=== PATIENT | female | born 1970 | race Caucasian/White ===

== ENCOUNTER → 2017-08-25 16:41 | Outpatient (CLI) | payer MEDICARE, SELFPAY ==
[2017-08-27 06:08] LABS: HEPATITIS B SURFACE AG Negative (Negative); Hepatitis A AB, Total Negative (Negative); Hepatitis A IgM Antibody Negative (Negative); Hepatitis B Core AB IgM Negative (Negative); Hepatitis B Core Ab Total Negative (Negative); Hepatitis C Ab <0.1 s/co ratio (0.0-0.9)
[2017-08-27 11:19] LABS: Hep B Surface Antibodies Non Reactive (.)
== END ==
PROVIDERS: Family Provider Family Medicine; PCP Family Medicine; Visit Provider Psychiatry & Neurology Neurology
DX: G35 Multiple sclerosis (principal)
CPT/HCPCS: 36415; 86704; 86705; 86706; 86708; 86709; 86803; 87340

== ENCOUNTER → 2017-09-24 07:37 | Outpatient (CLI) | payer MEDICARE, SELFPAY ==
[2017-09-24] VITALS (7 sets, daily range): BP systolic 96–109; BP diastolic 63–71; PULSE 64–94; RESP 16–18; TEMP 36.1–37.6; O2SAT 95–99; BMI 21.2
[2017-09-24] MEDS: MethylPREDNISolone 125 MG/2 ML Vial 100 MG IV (08:16)
[2017-09-24] MEDS: DiphenhydrAMINE 50 MG/ML Syringe 25 MG IV (08:17)
== END ==
PROVIDERS: Family Provider Family Medicine; PCP Family Medicine; Visit Provider Psychiatry & Neurology Neurology
DX: G35 Multiple sclerosis (principal)
CPT/HCPCS: 96365; 96366 ×2; 96374; 96375; J7050; A4216; J2350

== ENCOUNTER → 2017-10-15 07:45 | Outpatient (CLI) | payer MEDICARE, SELFPAY ==
[2017-10-15 08:10] VITALS: BP 104/87; PULSE 108; RESP 16; TEMP 36.3; O2SAT 95; BMI 19.5
[2017-10-15] MEDS: MethylPREDNISolone 125 MG/2 ML Vial 100 MG IV (08:31)
[2017-10-15] MEDS: DiphenhydrAMINE 50 MG/ML Syringe 25 MG IV (08:31)
[2017-10-15 10:40] VITALS: BP 110/77; PULSE 98; RESP 16
[2017-10-15 11:08] VITALS: BP 104/69; PULSE 98; RESP 16
[2017-10-15 11:35] VITALS: BP 110/70; PULSE 95; RESP 16; TEMP 36.7
[2017-10-15 12:08] VITALS: BP 109/72; PULSE 74; RESP 16; O2SAT 98
[2017-10-15 12:37] VITALS: BP 103/66; PULSE 95; RESP 16; TEMP 36.7; O2SAT 98
== END ==
PROVIDERS: Family Provider Family Medicine; PCP Family Medicine; Visit Provider Psychiatry & Neurology Neurology
DX: G35 Multiple sclerosis (principal)
CPT/HCPCS: 96365; 96366 ×3; 96374; 96375; J7050; A4216; J2350

== ENCOUNTER → 2018-03-25 07:47 | Outpatient (CLI) | payer MEDICARE, SELFPAY ==
[2018-03-25 08:12] VITALS: BP 128/69; PULSE 75; RESP 16; TEMP 36.4; O2SAT 98; BMI 20.2
[2018-03-25] MEDS: DiphenhydrAMINE 50 MG/ML Syringe 25 MG IV (08:49)
[2018-03-25] MEDS: MethylPREDNISolone 125 MG/2 ML Vial 100 MG IV (08:51)
[2018-03-25] MEDS: Ocrelizumab 600mg Infusion 40 MG IV (09:26)
[2018-03-25 10:04] VITALS: BP 109/64; PULSE 90; RESP 14; O2SAT 95
[2018-03-25 10:32] VITALS: BP 112/66; PULSE 88; RESP 16; TEMP 36.7; O2SAT 98
[2018-03-25 11:08] VITALS: BP 116/71; PULSE 92; RESP 16; TEMP 36.7; O2SAT 95
[2018-03-25 11:44] VITALS: BP 116/65; PULSE 89; RESP 16; TEMP 36.8; O2SAT 93
[2018-03-25 13:38] VITALS: BP 122/72; PULSE 99; RESP 14; TEMP 37.1; O2SAT 99
== END ==
PROVIDERS: Family Provider Family Medicine; PCP Family Medicine; Visit Provider Psychiatry & Neurology Neurology
DX: G35 Multiple sclerosis (principal)
CPT/HCPCS: 96365; 96366 ×3; 96374; 96375; J7040; J7050; A4216; J2350

== ENCOUNTER 2018-03-27 08:10 | Inpatient (IN) | payer MEDICARE, SELFPAY ==
[2018-03-27] VITALS (14 sets, daily range): BP systolic 100–141; BP diastolic 61–84; PULSE 87–144; RESP 16–32; TEMP 36.7–39.4; O2SAT 92–96; BMI 19.5; BMI 23.4
--- NOTE | 2018-03-27 08:25 | EKG12_ITS ---
Test Reason : DYSRHYTHMIA Blood Pressure : / mmHG Vent. Rate : 137 BPM Atrial Rate : 137 BPM P-R Int : 134 ms QRS Dur : 076 ms QT Int : 280 ms P-R-T Axes : 042 -19 072 degrees QTc Int : 422 ms Sinus tachycardia with occasional Premature ventricular complexes Voltage criteria for left ventricular hypertrophy Nonspecific ST and T wave abnormality Abnormal ECG Confirmed by DUSTY MARION, PETER ([id number]), photograph editor TOVA LAU ([id number]) on 03/28/2018 2:10:44 PM Referred By: Ed Caldwell Confirmed By:PETER MONTANO MD
--- NOTE | 2018-03-27 08:25 | RAD_ITS ---
STUDY: X-RAY CHEST REASON FOR EXAM: Female, 47 years old. Fever TECHNIQUE: Single frontal view COMPARISON: September 27, 2013 FINDINGS: The lungs are not fully expanded. There is a focal right basilar infiltrate/atelectasis. Mildly prominent cardiac shadow. Normal mediastinum and venessa. Normal visualized pulmonary arteries. Normal visualized aortic arch and descending thoracic aorta. Normal visualized thoracic spine. Normal visualized ribs, clavicles, and shoulders. There is no demonstrated abnormality of the visualized soft tissue structures of the upper abdomen. RAD/Chest 1 View (Portable) IMPRESSION: Right basilar focal infiltrate/atelectasis. Electronically Signed: Larry Tejeda DO at 8:51 EDT Tel [phone], Service support ,
--- NOTE | 2018-03-27 08:31 | ED.VISSUMM ---
- ER Visit Summary Date of Service: 03/27/18 Chief Complaint: Fever and decreased mental status History of Present Illness: The patient is a 47 F history of MS and hypothyroidism. Patient is wheelchair-bound and unable to walk. She is cared for by her at home. He states she was doing well she was in her normal state of health. Wednesday morning she was fine. He went to work. When he came home he said she had decreased mental status and he believes she may have developed a fever which he realized she definitely had today. It was concerned she was getting dehydrated and brought her into the ER. He denies any vomiting or diarrhea. No known cough. No falls or head trauma. She has had an episode like this before when she had a urinary tract infection. Physical Examination: Middle-aged female. Initial blood pressure 129/84. Temperature 103. Heart rate 144. Pulse ox 93% on room air. Patient definitely looks dehydrated. She may be septic. HEENT exam atraumatic. Dry mucous membranes. Neck nontender no meningismus. No lymphadenopathy. Lungs diminished but no rales, rhonchi or wheezing. She is taking shallow respirations. Heart tachycardic rate about 140. I do not appreciate any murmur. Abdomen is soft and nontender. No peritoneal signs. Normal bowel sounds. She is extremely weak on all 4 extremities. She has a history of MS. She has a left foot drop brace on the left lower extremity. Currently she is not moving her extremities. Neurologically she is arousable. Is confused. Does not follow commands. Does not answer questions appropriately. Test Results: Chest x-ray has a possible right lower lobe infiltrate but more than likely this is atelectasis. EKG sinus tachycardia rate of 137. Seizures white count of 14. Hemoglobin of 14. No bands. Electrolytes unremarkable except for a BUN 25 and a creatinine 1.42. Liver enzymes are normal. PT/INR normal. Lactate is normal at 1.2. Emergency Department Course and Treatment: Patient will begin sepsis protocol workup. She will be treated with 2 L of normal saline. IV Toradol for her fever. Also started on IV Rocephin 2 g. Treatment Plan: Spoke to the hospitalist and the patient will be admitted to the PCU. Disposition: Admission Impression: Acute fever secondary to acute sepsis Acute urinary tract infection Acute dehydration Decreased mental status History of MS and is wheelchair bound This note was generated with [employer] dictation software. It may contain incorrect words, spelling, and punctuation that were not noted in review of the chart prior to signing ED Disposition - Plan for ED Patient: Chief Complaint: Alt LOC Referrals: Care Physician,No Primary [Primary Care Provider] -
[2018-03-27] MEDS: 0.9% Normal Saline 1,000 ML 999 ML IV ×2 (08:50→09:51)
[2018-03-27] MEDS: Ketorolac 30 MG/ML Syringe IV (08:50)
[2018-03-27 09:21] LABS: Absolute Lymphocyte Count 0.32 X10^3/ul (0.83-4.51); Basophil# 0.02 X10^3/uL; Basophil% 0.1 % (0-1); Differential Indicated SCAN CRITERIA MET; Eosinophil# 0.01 X10^3/uL; Eosinophils% 0.1 % (0-5); Hematocrit 43.1 % (37-47); Hemoglobin 14.9 g/dl (12.0-15.0); Lymphocyte # 0.32 X10^3/ul (4.0); Lymphocyte % 2.3 % (19-41); Mean Corp Hgb Conc 34.6 g/gl (32-36); Mean Corpuscular Hgb 30.2 pg (27.0-32.0); Mean Corpuscular Volume 87.2 fL (81-99); Mean Platelet Vol. 10.9 fl (6.2-12.0); Monocyte# 0.57 X10^3/uL; Monocyte% 4.1 % (0-10); Neutrophil % 93.1 % (47-70); POSITIVE COUNT NO; POSITIVE DIFFERENTIAL YES; POSITIVE MORPHOLOGY NO; Platelet Count 213 K/mm3 (150-450); RBC Distribution Width CV 14.7 % (11.6-14.6); RBC Distribution Width SD 47.1 fl (35.1-43.9); Red Blood Count 4.94 M/mm3 (4.2-5.4)
[2018-03-27 09:24] LABS: International Normalized Ratio 1.1; Prothrombin Time (Protime)PT. 14.4 SECONDS (11.7-14.9)
[2018-03-27 09:25] LABS: Partial Thromboplast Time 34.3 Seconds (24.1-36.2)
[2018-03-27 09:28] LABS: Lactic Acid 1.2 mmol/L (0.4-2.0)
[2018-03-27 09:28] LABS: ALB/GLOB Ratio 0.7 RATIO (0.9-2.4); AST(SGOT) 41 U/L (15-37); Alanine Aminotransfer ALT/SGPT 52 U/L (13-56); Albumin, Serum 3.2 g/dL (3.2-5.0); Alkaline Phosphatase 104 U/L (45-117); Anion Gap 13 (5-15); BUN 25 mg/dL (7-18); BUN/Creat Ratio 17.6 RATIO (10-20); Calcium,Total 9.5 mg/dL (8.5-10.1); Chloride 104 mmol/L (98-107); Creatinine, Serum 1.42 mg/dL (0.55-1.02); EST Glomerular Filtration Rate 42 mL/min (>60); Est Glom Filt Rate - Afr Amer 51 mL/min (>60); Estimated Creatinine Clearance 39.12 ml/min; Globulin 4.6 g/dL (2.2-4.2); Glucose 93 mg/dL (74-106); Protein, Total 7.8 g/dL (6.4-8.2); Sodium Level 140 mmol/L (136-145)
--- NOTE | 2018-03-27 09:41 | ED.RN ---
PT HAS A SUPRAPUBIC CATH IN PLACE FROM HOME. STATES HE REPLACES THEM NEEDED AND THIS PARTICULAR CATH HAS BEEN IN PLACE X 2 WEEKS.
[2018-03-27 10:01] LABS: Mucous, Urine 0 SEEN /hpf (<or=2+)
[2018-03-27 10:09] LABS: Color, Urine Yellow (Yellow); Glucose, Dipstick Normal (Normal); Ketone-Dipstick 50 mg/dl (Negative); Leukocyte Esterase-Dipstick 500 /ul (Negative); Nitrite-Dipstick Positive (Negative); Occult Blood-Urine 250 /ul (Negative); Protein-Dipstick 100 mg/dl (Negative); Urine Bilirubin Dipstick Negative (Negative); Urine Clarity Turbid (Clear); Urine Urobilinogen Normal (Normal)
[2018-03-27 10:19] LABS: Amorphous Sediment 3+; Bacteria 3+ /hpf (None Seen); Red Blood Cells-Urine 0-5 SEEN /hpf (0-5); Squamous Epithelial Cells - UA 0-5 SEEN /hpf (5-10); Triple Phosphate Crystals Ur RARE /hpf (<or=1+); White Blood Cells 25-50 SEEN /hpf (0-5)
--- NOTE | 2018-03-27 11:04 | CT_ITS ---
STUDY: CT BRAIN WITHOUT CONTRAST REASON FOR EXAM: Female, 47 years old. Headache, lethargic, confusion, fever. RADIATION DOSAGE (If Supplied By Facility): CTDIvol = ( 44.99 ) mGy, DLP = ( 779.24 ) mGycm TECHNIQUE: Transaxial CT imaging of the brain was performed without administration of intravenous contrast material. Coronal and sagittal 2-D MPR Individualized dose optimization techniques were used for this CT. COMPARISON: MRI brain 09/27/2013, CT brain 09/27/2013. FINDINGS: Paranasal sinuses clear. Mastoid air cells and middle ear cavities clear. Cranial facial osseous structures unremarkable. The extra cranial soft tissues including orbital contents appear normal. There is no significant cerebral atrophy. There are mild and subtle patchy low-density changes in the deep white matter concordant with features seen on prior brain imaging. There is no acute intracranial bleed, mass or mass effect nor any specific evidence of acute territorial infarct. CT/Brain/Head without Contrast IMPRESSION: No acute intracranial process. Electronically Signed: Lee Woodruff, at 16:42 EDT Tel , Service support ,
--- NOTE | 2018-03-27 11:16 | HP.PCM_ITS ---
Problem List (1) Encephalopathy acute Status: Acute (2) Urinary tract bacterial infections Status: Acute (3) Multiple sclerosis Status: Chronic (4) Hypothyroidism Status: Chronic History of Present Illness Date of Admission: 03/27/18 Chief Complaint: Altered mental status since yesterday The patient is a 47 year old F with history of MS, was given IV infusion last Wednesday, medication unclear but I guess OCREVUS by Dr. Caldwell and then she was lethargic, dull and decreased responsiveness yesterday. When patient's left her for work yesterday, she was lethargic but when he came back she was almost unresponsive or very decreased responsiveness. She was confused and disoriented. He thinks he also had fever. In ED, she was found tachycardic, heart rate 144, high fever 103 Fahrenheit, tachypneic and leukocytosis suggestive of infection. She was started on IV ceftriaxone and had about 2 L IV normal saline bolus. Basic labs shows leukocytosis with left shift, BUN 25, creatinine 1.42. EKG shows sinus tachycardia. Chest x-ray shows right basilar atelectasis. [] Past Medical History Past Medical History (Chronic Problems): Chronic Problems Multiple sclerosis (Chronic) Hypothyroidism (Chronic) Allergies acetaminophen [From Percocet] Adverse Reaction (Verified 03/27/18 08:13) Other MESSES WITH MY HEAD ciprofloxacin [From Cipro] Adverse Reaction (Verified 03/27/18 08:13) Nausea/Vom/Diarrhea nitrofurantoin [From Macrodantin] Adverse Reaction (Verified 03/27/18 08:13) Nausea/Vom/Diarrhea oxycodone [From Percocet] Adverse Reaction (Verified 03/27/18 08:13) Other MESSES WITH MY HEAD Home Medications: Ambulatory Orders Medication Instructions Recorded Baclofen [Lioresal] 20 mg PO TID 08/27/13 Atorvastatin Calcium [Lipitor] 20 mg PO QHS 09/24/17 Gabapentin [Neurontin] 300 mg PO TIDCM 09/24/17 Levothyroxine Sodium [Synthroid] 88 mcg PO DAILY 03/27/18 Surgical History: cholecystectomy, tonsillectomy, - - Thyroidectomy, removal of kidney stone Psychiatric History: Anxiety 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 Last catheter changed 2 weeks ago Unable to obtain accurate/complete ROS d/t: Altered mental status. From VTE Information - Inpt Only VTE Present on Admission: No VTE Mechan Device Prophylaxis: None VTE Pharm Prophylaxis ordered?: Yes Patient Problems: Active and Suspected Problems Encephalopathy acute (Acute) - Physical Exam General: Disoriented - To time, Lethargic HEENT: Atraumatic, PERRLA, EOMI, Normocephalic Oral: Dry Mucosa Neck: Supple, No JVD, Negative Carotid Bruits, No Nuchal Rigidity, - - Meningeal signs negative Lungs: Clear to auscultation, No rhonchi, No wheeze, No rales, Diminished - Diminished in bilateral lung bases Cardiovascular: Regular Rhythm, Normal S1, Normal S2, No murmurs, Tachycardic Abdomen: Bowel Sounds Present, Soft, Non Tender, Non-Distended, - - Suprapubic catheter. Urine looks turbid Extremities: No edema, Capillary Refill Less than 3 Seconds Skin: No rashes, No breakdown Musculoskeletal: No Tenderness to Palpation of Joints or Extremities, Arthritic Changes, Muscle Wasting Neurological: Cranial nerves II-XII grossly intact, - - Paraplegia. Left leg drop with brace on it. Bilateral upper extremity mild weakness. Psych/Mental Status: Normal Affect, Appropriate Vital Signs Temp Pulse Resp BP Pulse Ox 98.2 F 112 H 19 H 111/75 94 03/27/18 09:50 03/27/18 09:57 03/27/18 09:57 03/27/18 09:57 03/27/18 09:57 Oxygen Delivery Method Room Air Weight: 114 lb Body Mass Index (BMI) 19.5 Laboratory Tests Past 24 Hrs 03/27/18 03/27/18 03/27/18 08:35 08:35 08:35 WBC 14.0 H RBC 4.94 Hgb 14.9 Hct 43.1 MCV 87.2 MCH 30.2 MCHC 34.6 RDW 14.7 H RDW Differential 47.1 H Plt Count 213 MPV 10.9 Immature Gran % (Auto) 0.300 Neut % (Auto) 93.1 H Lymph % (Auto) 2.3 L [place] % (Auto) 4.1 Eos % (Auto) 0.1 Baso % (Auto) 0.1 Absolute Neuts (auto) 13.0 H Absolute Lymphs (auto) 0.32 L Total Counted Not Reportable Differential Comment COMMENT PT 14.4 INR 1.1 APTT 34.3 Sodium 140 Potassium 4.0 Chloride 104 Carbon Dioxide 23.0 Anion Gap 13 BUN 25 H Creatinine 1.42 H Estim Creat Clear Calc 39.12 Est GFR (MDRD) Af Amer 51 L Est GFR (MDRD) Non-Af 42 L BUN/Creatinine Ratio 17.6 Glucose 93 Lactic Acid Calcium 9.5 Total Bilirubin 0.80 AST 41 H ALT 52 Alkaline Phosphatase 104 Total Protein 7.8 Albumin 3.2 Globulin 4.6 H Albumin/Globulin Ratio 0.7 L Urine Color Urine Clarity Urine pH Ur Specific [place] Urine Protein Urine Glucose (UA) Urine Ketones Urine Occult Blood Urine Nitrite Urine Bilirubin Urine Urobilinogen Ur Leukocyte Esterase Urine RBC Urine WBC Ur Squamous Epith Cells Triple Phos Crystals Amorphous Sediment Urine Bacteria Urine Mucus 03/27/18 03/27/18 09:00 09:50 WBC RBC Hgb Hct MCV MCH MCHC RDW RDW Differential Plt Count MPV Immature Gran % (Auto) Neut % (Auto) Lymph % (Auto) [place] % (Auto) Eos % (Auto) Baso % (Auto) Absolute Neuts (auto) Absolute Lymphs (auto) Total Counted Differential Comment PT INR APTT Sodium Potassium Chloride Carbon Dioxide Anion Gap BUN Creatinine Estim Creat Clear Calc Est GFR (MDRD) Af Amer Est GFR (MDRD) Non-Af BUN/Creatinine Ratio Glucose Lactic Acid 1.2 Calcium Total Bilirubin AST ALT Alkaline Phosphatase Total Protein Albumin Globulin Albumin/Globulin Ratio Urine Color Yellow Urine Clarity Turbid Urine pH 8.0 Ur Specific [place] 1.010 Urine Protein 100 H Urine Glucose (UA) Normal Urine Ketones 50 H Urine Occult Blood 250 H Urine Nitrite Positive H Urine Bilirubin Negative Urine Urobilinogen Normal Ur Leukocyte Esterase 500 H Urine RBC 0-5 SEEN Urine WBC 25-50 SEEN Ur Squamous Epith Cells 0-5 SEEN Triple Phos Crystals RARE Amorphous Sediment 3+ Urine Bacteria 3+ Urine Mucus 0 SEEN Assessment/Plan All Active Problems Encephalopathy acute (Acute) Troponin level elevated (Acute) Exacerbation of multiple sclerosis (Acute) Urinary tract bacterial infections (Acute) The patient is a 47 year old F with history of MS, was given IV infusion last Wednesday, medication unclear but I guess OCREVUS by Dr. Caldwell and then she was lethargic, dull and decreased responsiveness yesterday. When patient's left her for work yesterday, she was lethargic but when he came back she was almost unresponsive or very decreased responsiveness. She was confused and disoriented. He thinks he also had fever. She also complained of headache and neck pain. In ED, she was found tachycardic, heart rate 144, high fever 103 Fahrenheit, tachypneic and leukocytosis suggestive of infection. She was started on IV ceftriaxone and had about 2 L IV normal saline bolus. Basic labs shows leukocytosis with left shift, BUN 25, creatinine 1.42. EKG shows sinus tachycardia. Chest x-ray shows right basilar atelectasis. 1. Acute encephalopathy most probably secondary to infection/metabolic encephalopathy: Patient is currently being admitted in PCU. IV fluid normal saline. Treat the underlying cause. After IV fluid rehydration, patient is more awake and alert. 2 SIRS (tachycardic, heart rate 144, high fever 103 Fahrenheit, tachypneic and leukocytosis), possible sepsis secondary to complicated UTI: Patient needs vigorous rehydration. Blood culture and urine cultures sent in ER. Empirically started on IV ceftriaxone. Patient is allergic to Cipro. Respiratory panel ordered. ESR and CRP ordered 3. MS with recent headache: Neurology consult requested. CT head ordered. No neck rigidity or meningeal signs. I do not think she has meningitis. 4. Other chronic comorbidities include wheelchair-bound, debility and paraplegia secondary to MS, hypothyroidism: PT and OT ordered. TSH and free T4 ordered. Multiple comorbidities complicates the present care and expect difficult and delay recovery VT prophylaxis: On Lovenox 40 mg subcu daily. Code Visit Inpatient E&M: 35256 Init Hosp L3
[2018-03-27] MEDS: 0.9% Normal Saline 1,000 ML 150 ML IV (12:30)
[2018-03-27 13:02] LABS: Erythrocyte Sedimentation Rate 70 mm/hr (0-20)
[2018-03-27] MEDS: Baclofen 10 MG Tablet PO ×2 (13:37→16:43)
[2018-03-27] MEDS: Gabapentin 300 MG Capsule PO ×2 (13:37→16:43)
[2018-03-27] MEDS: Enoxaparin 40 MG/0.4 ML Syringe SC (13:38)
[2018-03-27] MEDS: Oxybutynin 5 MG Tablet PO ×2 (14:02→21:53)
[2018-03-27] MEDS: Levothyroxine 88 MCG Tablet PO (16:43)
[2018-03-27] MEDS: 0.9% Normal Saline 1,000 ML 100 ML IV (20:09)
[2018-03-27] MEDS: Acetaminophen 325 MG Tablet 650 MG PO (20:18)
[2018-03-27] MEDS: Atorvastatin Calcium 20 MG Tablet PO (21:53)
[2018-03-28] VITALS (14 sets, daily range): BP systolic 105–129; BP diastolic 73–85; PULSE 81–124; RESP 14–20; TEMP 36.2–37.1; O2SAT 95–99
[2018-03-28] MEDS: Acetaminophen 325 MG Tablet 650 MG PO ×2 (04:02→09:46)
[2018-03-28] MEDS: Oxybutynin 5 MG Tablet PO ×3 (05:21→21:00)
[2018-03-28] MEDS: Levothyroxine 88 MCG Tablet PO (05:21)
[2018-03-28 06:09] LABS: Absolute Lymphocyte Count 0.57 X10^3/ul (0.83-4.51); Absolute Neutrophil Count 9.1 X10^3/uL (2.0-7.7); Basophil# 0.01 X10^3/uL; Basophil% 0.1 % (0-1); Eosinophil# 0.01 X10^3/uL; Eosinophils% 0.1 % (0-5); Hematocrit 33.7 % (37-47); Lymphocyte # 0.57 X10^3/ul (4.0); Lymphocyte % 5.3 % (19-41); Mean Corp Hgb Conc 32.6 g/gl (32-36); Mean Corpuscular Hgb 29.1 pg (27.0-32.0); Mean Corpuscular Volume 89.2 fL (81-99); Mean Platelet Vol. 10.6 fl (6.2-12.0); Monocyte# 1.11 X10^3/uL; Monocyte% 10.3 % (0-10); Neutrophil # 9.08 X10^3/uL (2.7-7.7); Neutrophil % 84.1 % (47-70); Platelet Count 138 K/mm3 (150-450); RBC Distribution Width CV 14.9 % (11.6-14.6); RBC Distribution Width SD 48.5 fl (35.1-43.9); Red Blood Count 3.78 M/mm3 (4.2-5.4); White Blood Count 10.8 K/mm3 (4.4-11.0)
[2018-03-28 06:16] LABS: Differential Indicated SCAN CRITERIA MET; POSITIVE COUNT NO; POSITIVE DIFFERENTIAL YES; POSITIVE MORPHOLOGY YES
[2018-03-28 06:40] LABS: Anion Gap 8 (5-15); BUN 22 mg/dL (7-18); BUN/Creat Ratio 18.8 RATIO (10-20); Calcium,Total 7.9 mg/dL (8.5-10.1); Chloride 114 mmol/L (98-107); Creatinine, Serum 1.17 mg/dL (0.55-1.02); EST Glomerular Filtration Rate 52 mL/min (>60); Est Glom Filt Rate - Afr Amer 63 mL/min (>60); Estimated Creatinine Clearance 41.78 ml/min; Glucose 80 mg/dL (74-106); Potassium 3.9 mmol/L (3.5-5.1); Sodium Level 143 mmol/L (136-145); T4 Free Direct 1.14 ng/dL (0.76-1.46); Thyroid Stim Hormone (TSH) 2.18 uIU/mL (0.358-3.74)
[2018-03-28 07:20] LABS: Differential Comment SCANNED
[2018-03-28] MEDS: Gabapentin 300 MG Capsule PO ×3 (08:32→17:43)
[2018-03-28] MEDS: Baclofen 10 MG Tablet PO ×3 (08:33→17:43)
[2018-03-28 09:36] LABS: Magnesium 1.8 mg/dL (1.6-2.6)
--- NOTE | 2018-03-28 09:46 | PCM.PN.HOSP ---
Patient Problems: Active and Suspected Problems Encephalopathy acute (Acute) Subjective: Patient is a 47-year-old lady with history of multiple sclerosis who presented with increasing lethargy associated with fever. Her initial assessment was consistent with acute cystitis admitted to a monitored bed for subsequent management 03/28/2018. Patient had a runs of nonsustained VT on telemetry. Magnesium checked came back at 1.8 calcium 7.9 did receive IV magnesium as well as calcium supplementation Objective: GENERAL: cooperative and in no apparent distress. HEENT: Atraumatic; moist oral mucosa EYES; Anicteric, Normal Conjunctiva NECK; supple, normal thyroid, RESPIRATORY: Diminished to auscultation bilaterally, CARDIOVASCULAR: Regular S1 S2, GI: soft, non-tender, normoactive bowel sounds, : No Renal angle tenderness; EXTREMITIES: No edema, no clubbing, MUSCULOSKELTAL: No Joint Tenderness; NEURO: Awake; no lateralizing signs. SKIN: No Rash PSYCH; flat affect Vitals/I&O's: Vital Signs Temp Pulse Resp BP Pulse Ox 98.5 F 124 H 20 H 114/73 95 03/28/18 08:08 03/28/18 09:20 03/28/18 08:08 03/28/18 08:08 03/28/18 08:08 Oxygen Delivery Method Room Air Weight: 54.431 kg Body Mass Index (BMI) 23.4 Intake and Output for Last 24 Hours 03/26/18 03/27/18 03/28/18 23:59 23:59 23:59 Intake Total 3663 / 3663 629 / 629 Output Total 1550 / 1550 350 / 350 Balance 2113 / 2113 279 / 279 Microbiology Past 72 Hours 03/27/18 08:35 Blood Culture (Wb) - Venous Blood Culture - Preliminary 03/27/18 09:00 Blood Culture (Wb) - Right Hand Blood Culture - Preliminary Laboratory Results 03/27/18 08:35: Total Counted Not Reportable, Differential Comment COMMENT 03/27/18 08:35: C-React Prot Ext Range 402.00 H 03/27/18 08:35: ESR 70 H 03/27/18 09:50: Urine Color Yellow, Urine Clarity Turbid, Urine pH 8.0, Ur Specific [place] 1.010, Urine Protein 100 H, Urine Glucose (UA) Normal, Urine Ketones 50 H, Urine Occult Blood 250 H, Urine Nitrite Positive H, Urine Bilirubin Negative, Urine Urobilinogen Normal, Ur Leukocyte Esterase 500 H, Urine RBC 0-5 SEEN, Urine WBC 25-50 SEEN, Ur Squamous Epith Cells 0-5 SEEN, Triple Phos Crystals RARE, Amorphous Sediment 3+, Urine Bacteria 3+, Urine Mucus 0 SEEN 03/28/18 05:10: Sodium 143, Potassium 3.9, Chloride 114 H, Carbon Dioxide 21.0, Anion Gap 8, BUN 22 H, Creatinine 1.17 H, Estim Creat Clear Calc 41.78, Est GFR (MDRD) Af Amer 63, Est GFR (MDRD) Non-Af 52 L, BUN/Creatinine Ratio 18.8, Glucose 80, Calcium 7.9 L, TSH 2.18, Free T4 1.14 03/28/18 05:10: WBC 10.8, RBC 3.78 L, Hgb 11.0 L, Hct 33.7 L, MCV 89.2, MCH 29.1, MCHC 32.6, RDW 14.9 H, RDW Differential 48.5 H, Plt Count 138 L, MPV 10.6, Immature Gran % (Auto) 0.100, Neut % (Auto) 84.1 H, Lymph % (Auto) 5.3 L, [place] % (Auto) 10.3 H, Eos % (Auto) 0.1, Baso % (Auto) 0.1, Absolute Neuts (auto) 9.1 H, Absolute Lymphs (auto) 0.57 L, Total Counted Not Reportable, Differential Comment SCANNED 03/28/18 05:10: Magnesium 1.8 Current Medications Acetaminophen (Tylenol) 650 mg PO Q6H PRN PRN PRN Reason: Mild Pain (scale 0-3)/T>100.7 Last Admin: 03/28/18 04:02 Dose: 650 mg Al Hydroxide/Mg Hydroxide (Mylanta Ii) 30 ml PO Q6H PRN PRN PRN Reason: Gastric burning Atorvastatin Calcium (Lipitor) 20 mg PO QHS [facility] Last Admin: 03/27/18 21:53 Dose: 20 mg Baclofen (Lioresal) 10 mg PO TIDCM [facility] Last Admin: 03/28/18 08:33 Dose: 10 mg Calcium/Vitamin D (Os-Darren 500mg + D) 1 tablet PO TIDCM [facility] Enoxaparin Sodium (Lovenox) 40 mg SC DAILY@1000 [facility] Last Admin: 03/27/18 13:38 Dose: 40 mg Famotidine (Pepcid) 20 mg PO DAILY [facility] Gabapentin (Neurontin) 300 mg PO TIDCM [facility] Last Admin: 03/28/18 08:32 Dose: 300 mg Ceftriaxone Sodium (Rocephin) 1 gm in 50 mls @ 100 mls/hr IV Q24 [facility] Magnesium Sulfate 2 gm/ (Dextrose) 104 mls @ 52 mls/hr IV X1 ONE Stop: 03/28/18 11:40 Levothyroxine Sodium (Synthroid) 88 mcg PO DAILY@0600 [facility] Last Admin: 03/28/18 05:21 Dose: 88 mcg Magnesium Hydroxide (Milk Of Magnesia) 30 ml PO DAILY PRN PRN Reason: Constipation Metoprolol Tartrate (Lopressor (Beta Mandy)) 12.5 mg PO DAILY [facility] Ondansetron HCl (Zofran) 4 mg IV Q8H PRN PRN PRN Reason: NAUSEA Oxybutynin Chloride (Ditropan) 5 mg PO TID [facility] Last Admin: 03/28/18 05:21 Dose: 5 mg Polyethylene Glycol (Miralax) 17 gm PO DAILY [facility] Promethazine HCl (Phenergan) 12.5 mg IV Q6H PRN PRN PRN Reason: NAUSEA/VOMITING Senna/Docusate Sodium (Senokot-S, Torri-Colace) 2 tablet PO BID PRN PRN Reason: CONSTIPATION Sodium Chloride () 5 - 30 ml IV UD PRN PRN Reason: SALINE FLUSH Zolpidem Tartrate (Ambien (Generic)) 5 mg PO QHS PRN PRN PRN Reason: INSOMNIA Medical Necessity - Tobacco Use Smoking Status: Former smoker Assessment/Plan All Active Problems Encephalopathy acute (Acute) Troponin level elevated (Acute) Exacerbation of multiple sclerosis (Acute) Urinary tract bacterial infections (Acute) Patient is a 47-year-old lady with history of multiple sclerosis who presented with increasing lethargy associated with fever. Her initial assessment was consistent with acute cystitis admitted to a monitored bed for subsequent management 1. Sepsis (present on admission) secondary to acute cystitis as a result of chronic self-catheterization: Patient admitted to regular nursing floor managed with broad-spectrum antibiotic therapy with Rocephin as well as IV fluid resuscitation 2. Acute infectious encephalopathy secondary to above 3. Multiple sclerosis with chronic debilitation patient is wheelchair-bound. Patient is followed by Dr. Caldwell with neurology as outpatient 4. Hypothyroidism-patient is on levothyroxine home dose continued 5. Physical debility secondary to multiple sclerosis 6. DVT prophylaxis SC Lovenox Clinical Impression(s) from Imaging Studies Brain CT 03/27/18 11:04 IMPRESSION: No acute intracranial process. Electronically Signed: Lee Woodruff, at 16:42 EDT Tel , Service support , Active Medications Acetaminophen (Tylenol) 650 mg PO Q6H PRN PRN PRN Reason: Mild Pain (scale 0-3)/T>100.7 Last Admin: 03/28/18 09:46 Dose: 650 mg Al Hydroxide/Mg Hydroxide (Mylanta Ii) 30 ml PO Q6H PRN PRN PRN Reason: Gastric burning Atorvastatin Calcium (Lipitor) 20 mg PO QHS [facility] Last Admin: 03/27/18 21:53 Dose: 20 mg Baclofen (Lioresal) 10 mg PO TIDCM [facility] Last Admin: 03/28/18 11:09 Dose: 10 mg Calcium/Vitamin D (Os-Darren 500mg + D) 1 tablet PO TIDCM [facility] Last Admin: 03/28/18 12:21 Dose: 1 tablet Enoxaparin Sodium (Lovenox) 40 mg SC DAILY@1000 [facility] Last Admin: 03/28/18 10:36 Dose: 40 mg Famotidine (Pepcid) 20 mg PO DAILY [facility] Last Admin: 03/28/18 10:36 Dose: 20 mg Gabapentin (Neurontin) 300 mg PO TIDCM [facility] Last Admin: 03/28/18 11:10 Dose: 300 mg Ceftriaxone Sodium (Rocephin) 1 gm in 50 mls @ 100 mls/hr IV Q24 [facility] Last Admin: 03/28/18 10:23 Dose: 100 mls/hr Levothyroxine Sodium (Synthroid) 88 mcg PO DAILY@0600 [facility] Last Admin: 03/28/18 05:21 Dose: 88 mcg Magnesium Hydroxide (Milk Of Magnesia) 30 ml PO DAILY PRN PRN Reason: Constipation Metoprolol Tartrate (Lopressor (Beta Mandy)) 12.5 mg PO DAILY [facility] Last Admin: 03/28/18 10:35 Dose: 12.5 mg Ondansetron HCl (Zofran) 4 mg IV Q8H PRN PRN PRN Reason: NAUSEA Oxybutynin Chloride (Ditropan) 5 mg PO TID [facility] Last Admin: 03/28/18 05:21 Dose: 5 mg Polyethylene Glycol (Miralax) 17 gm PO DAILY [facility] Last Admin: 03/28/18 10:33 Dose: Not Given Promethazine HCl (Phenergan) 12.5 mg IV Q6H PRN PRN PRN Reason: NAUSEA/VOMITING Senna/Docusate Sodium (Senokot-S, Torri-Colace) 2 tablet PO BID PRN PRN Reason: CONSTIPATION Sodium Chloride () 5 - 30 ml IV UD PRN PRN Reason: SALINE FLUSH Last Admin: 03/28/18 10:26 Dose: 10 ml Zolpidem Tartrate (Ambien (Generic)) 5 mg PO QHS PRN PRN PRN Reason: INSOMNIA Code Visit Inpatient E&M: 33396 Subs Hosp L3
--- NOTE | 2018-03-28 10:07 | PCM.CONS.GEN ---
Problem List (1) Encephalopathy acute Status: Acute (2) Multiple sclerosis Status: Chronic Reason for Consult Date of Consultation: 03/28/18 Reason for Consultation: AMS History of Present Illness: The patient is a 47 year old F with PMH MS, hypothyroidism admitted with AMS and fever. History is obtained from patient and medical records. Per documentation patient was admitted 2 days ago on Wednesday (03/26/18) with lethargy, decreased responsiveness and fever. She was confused and disoriented on admission per documentation Was found to have UTI with UA showing Nitrites-positive, LE 500 and +3 bacteria in urine. Started on antibiotics and has been doing much better, at present is more alert and oriented to place and person. Per nurse taking care of the patient she is better than when she was admitted, had some waxing waning mental status yesterday night. Per patient she has been having MS since 1995, is wheel chair and bed bound from MS, has quadriparesis, followed by Dr. Caldwell, is on Ocrevus. 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 mRS 5 at baseline. Has suprapubic catheter in place per patient. Denies any SY, visual disturbances, speech disturbances, new onset focal motor weakness or sensory loss. CT head done on admission reported nothing acute. Past Medical History Past Medical History (Chronic Problems): Chronic Problems Multiple sclerosis (Chronic) Hypothyroidism (Chronic) Allergies acetaminophen [From Percocet] Adverse Reaction (Verified 03/27/18 08:13) Other MESSES WITH MY HEAD ciprofloxacin [From Cipro] Adverse Reaction (Verified 03/27/18 08:13) Nausea/Vom/Diarrhea nitrofurantoin [From Macrodantin] Adverse Reaction (Verified 03/27/18 08:13) Nausea/Vom/Diarrhea oxycodone [From Percocet] Adverse Reaction (Verified 03/27/18 08:13) Other MESSES WITH MY HEAD Home Medications: Ambulatory Orders Medication Instructions Recorded Baclofen [Lioresal] 20 mg PO 4X/DAY 08/27/13 Atorvastatin Calcium [Lipitor] 20 mg PO QHS 09/24/17 Gabapentin [Neurontin] 300 mg PO TIDCM 09/24/17 Levothyroxine Sodium [Synthroid] 88 mcg PO DAILY 03/27/18 Metoprolol Tartrate 12.5 mg PO DAILY 03/27/18 Oxybutynin [Ditropan] 5 mg PO TID 03/27/18 Surgical History: cholecystectomy, tonsillectomy, - - Thyroidectomy, removal of kidney stone Psychiatric History: Anxiety 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: 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 Lives: Spouse/ Significant Other Smoking Status: Former smoker Alcohol: None Drugs: None - *Family History Paternal History Items: No pertinent history Review of Systems Constitutional: Reports: - - complete ROS negative except as documented in HPI Patient Problems: Active and Suspected Problems Encephalopathy acute (Acute) - Physical Exam General: - - awake, alert AoAx 2 HEENT: Normocephalic Neck: Supple Lungs: Normal air movement Cardiovascular: Regular Rhythm Abdomen: Bowel Sounds Present Extremities: No cyanosis Neurological: - - consious, awake, AoA x2, CN-2-12 grossly intact, moves right UE, unable to move left UE, 0/5, B/L LE 1/5, denies any sensory loss, cerebellar signs could not be assessed, gait could not be assessed, Reflexes + B/L B/S/T/K/A, limited neurology examination. No NR, No Kernig's or Brudzincki's sign. Psych/Mental Status: Normal Affect Vital Signs Temp Pulse Resp BP Pulse Ox 98.5 F 124 H 20 H 114/73 95 03/28/18 08:08 03/28/18 09:20 03/28/18 08:08 03/28/18 08:08 03/28/18 08:08 Oxygen Delivery Method Room Air Weight: 54.431 kg Body Mass Index (BMI) 23.4 Intake and Output for Last 24 Hours 03/26/18 03/27/18 03/28/18 23:59 23:59 23:59 Intake Total 3663 / 3663 629 / 629 Output Total 1550 / 1550 350 / 350 Balance 2113 / 2113 279 / 279 Microbiology Past 72 Hours 03/27/18 08:35 Blood Culture - Preliminary Blood Culture (Wb) - Venous 03/27/18 09:00 Blood Culture - Preliminary Blood Culture (Wb) - Right Hand Laboratory Tests Past 24 Hrs 03/27/18 03/27/18 03/27/18 08:35 08:35 09:50 WBC RBC Hgb Hct MCV MCH MCHC RDW RDW Differential Plt Count MPV Immature Gran % (Auto) Neut % (Auto) Lymph % (Auto) Barnwell % (Auto) Eos % (Auto) Baso % (Auto) Absolute Neuts (auto) Absolute Lymphs (auto) Total Counted Differential Comment ESR 70 H Sodium Potassium Chloride Carbon Dioxide Anion Gap BUN Creatinine Estim Creat Clear Calc Est GFR (MDRD) Af Amer Est GFR (MDRD) Non-Af BUN/Creatinine Ratio Glucose Calcium Magnesium C-React Prot Ext Range 402.00 H TSH Free T4 Urine Color Yellow Urine Clarity Turbid Urine pH 8.0 Ur Specific [place] 1.010 Urine Protein 100 H Urine Glucose (UA) Normal Urine Ketones 50 H Urine Occult Blood 250 H Urine Nitrite Positive H Urine Bilirubin Negative Urine Urobilinogen Normal Ur Leukocyte Esterase 500 H Urine RBC 0-5 SEEN Urine WBC 25-50 SEEN Ur Squamous Epith Cells 0-5 SEEN Triple Phos Crystals RARE Amorphous Sediment 3+ Urine Bacteria 3+ Urine Mucus 0 SEEN 03/28/18 03/28/18 03/28/18 05:10 05:10 05:10 WBC 10.8 RBC 3.78 L Hgb 11.0 L Hct 33.7 L MCV 89.2 MCH 29.1 MCHC 32.6 RDW 14.9 H RDW Differential 48.5 H Plt Count 138 L MPV 10.6 Immature Gran % (Auto) 0.100 Neut % (Auto) 84.1 H Lymph % (Auto) 5.3 L Barnwell % (Auto) 10.3 H Eos % (Auto) 0.1 Baso % (Auto) 0.1 Absolute Neuts (auto) 9.1 H Absolute Lymphs (auto) 0.57 L Total Counted Not Reportable Differential Comment SCANNED ESR Sodium 143 Potassium 3.9 Chloride 114 H Carbon Dioxide 21.0 Anion Gap 8 BUN 22 H Creatinine 1.17 H Estim Creat Clear Calc 41.78 Est GFR (MDRD) Af Amer 63 Est GFR (MDRD) Non-Af 52 L BUN/Creatinine Ratio 18.8 Glucose 80 Calcium 7.9 L Magnesium 1.8 C-React Prot Ext Range TSH 2.18 Free T4 1.14 Urine Color Urine Clarity Urine pH Ur Specific [place] Urine Protein Urine Glucose (UA) Urine Ketones Urine Occult Blood Urine Nitrite Urine Bilirubin Urine Urobilinogen Ur Leukocyte Esterase Urine RBC Urine WBC Ur Squamous Epith Cells Triple Phos Crystals Amorphous Sediment Urine Bacteria Urine Mucus Assessment/Plan All Active Problems Encephalopathy acute (Acute) Troponin level elevated (Acute) Exacerbation of multiple sclerosis (Acute) Urinary tract bacterial infections (Acute) The patient is a 47 year old F with PMH MS, hypothyroidism admitted with AMS and fever. History is obtained from patient and medical records. Per documentation patient was admitted 2 days ago on Wednesday (03/26/18) with lethargy, decreased responsiveness and fever. She was confused and disoriented on admission per documentation Was found to have UTI with UA showing Nitrites-positive, LE 500 and +3 bacteria in urine. Started on antibiotics and has been doing much better, at present is more alert and oriented to place and person. Per nurse taking care of the patient she is better than when she was admitted, had some waxing waning mental status yesterday night. Per patient she has been having MS since 1995, is wheel chair and bed bound from MS, has quadriparesis, followed by Dr. Caldwell, is on Ocrevus. 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 mRS 5 at baseline. Has suprapubic catheter in place per patient. Denies any SY, visual disturbances, speech disturbances, new onset focal motor weakness or sensory loss. CT head done on admission reported nothing acute. Impression Metabolic/Toxic Encephalopathy Plan -Check MRI Brain w/w/o contrast, MRI C spine and T spine w/w/o contrast if no contraindication -Labs reviewed -Follow up with Dr. Caldwell for MS management -GI/DVT prophylaxis. -PT/OT -Fall precautions -Further medical management per primary team/hospitalist -Please call with questions if any -Thank you for allowing us to participate in patient's care and management I spent 60 minutes taking history, doing physical examination, reviewing medical records, coordinating care and counseling the patient. Code Visit Inpatient E&M: 77812 Init Hosp L3
[2018-03-28] MEDS: Ceftriaxone 1 GM/50 ML BAG IV (10:23)
[2018-03-28] MEDS: 0.9% NaCl Peripheral Flush Adult/Peds IV (10:26)
[2018-03-28] MEDS: Metoprolol Tartrate 25 MG Tablet 12.5 MG PO (10:35)
[2018-03-28] MEDS: Enoxaparin 40 MG/0.4 ML Syringe SC (10:36)
[2018-03-28] MEDS: Famotidine 20 MG Tablet PO (10:36)
[2018-03-28] MEDS: Glycerin/Hypromellose/PEG400 15 ml Bottle 2 DRP EACH EYE ×3 (11:08→21:00)
[2018-03-28] MEDS: Calcium Carb/Vitamin D 1 TABLET Tablet PO ×2 (12:21→17:43)
--- NOTE | 2018-03-28 13:45 | CASEMGMT ---
TIM CM Assessment PCP: Dr. Paula Bruno [place], [place] Pharmacy: [facility] Prescription coverage: yes Living Arrangements: Lives with in one story home. DME: WC, lift chair, has hospital bed (not using presently) Social Work Consult: No Intro role of CM to patient in room. Pt states her is her caregiver. Pt is non-ambulatory, uses WC @ home. No Home Health presently. RN CM inquired if she had concerns or difficulties, pt denied any needs. RN CM let her know to have nurse contact CM if any concerns or needs arise. DC PLAN: Home with . May consider Home Health if pt would benefit and reconsiders having HHS on dc.
[2018-03-28] MEDS: Mag Hydrox/Al Hydrox/Simeth 30 ML UDC PO (17:40)
[2018-03-28] MEDS: Atorvastatin Calcium 20 MG Tablet PO (21:00)
[2018-03-29] VITALS (11 sets, daily range): BP systolic 108–141; BP diastolic 58–74; PULSE 68–96; RESP 16–18; TEMP 36.6–37.3; O2SAT 93–98
[2018-03-29] MEDS: Acetaminophen 325 MG Tablet 650 MG PO ×2 (04:45→14:19)
[2018-03-29] MEDS: Levothyroxine 88 MCG Tablet PO (06:11)
[2018-03-29] MEDS: Oxybutynin 5 MG Tablet PO ×3 (06:11→21:35)
[2018-03-29] MEDS: Baclofen 10 MG Tablet PO ×3 (08:23→17:15)
[2018-03-29] MEDS: Gabapentin 300 MG Capsule PO ×3 (08:23→17:15)
[2018-03-29] MEDS: Calcium Carb/Vitamin D 1 TABLET Tablet PO ×3 (08:23→17:15)
--- NOTE | 2018-03-29 09:05 | PCM.PN.HOSP ---
Patient Problems: Active and Suspected Problems Encephalopathy acute (Acute) Subjective: Patient seen awaiting urine cultures had a relatively uneventful night Objective: GENERAL: cooperative and in no apparent distress. HEENT: Atraumatic; moist oral mucosa EYES; Anicteric, Normal Conjunctiva NECK; supple, normal thyroid, RESPIRATORY: Diminished to auscultation bilaterally, CARDIOVASCULAR: Regular S1 S2, GI: soft, non-tender, normoactive bowel sounds, : No Renal angle tenderness; suprapubic catheter in place EXTREMITIES: No edema, no clubbing, MUSCULOSKELETAL: No Joint Tenderness; NEURO: Awake; no lateralizing signs. SKIN: No Rash PSYCH; flat affect Vitals/I&O's: Vital Signs Temp Pulse Resp BP Pulse Ox 98.0 F 74 16 108/62 96 03/29/18 03:12 03/29/18 06:58 03/29/18 03:12 03/29/18 03:12 03/29/18 07:24 Oxygen Delivery Method Room Air Weight: 54.43 kg Body Mass Index (BMI) 23.4 Intake and Output for Last 24 Hours 03/27/18 03/28/18 03/29/18 23:59 23:59 23:59 Intake Total 3663 / 3663 1582 / 1582 480 / 480 Output Total 1550 / 1550 1350 / 1350 375 / 375 Balance 2113 / 2113 232 / 232 105 / 105 Microbiology Past 72 Hours 03/27/18 08:35 Blood Culture (Wb) - Venous Blood Culture - Preliminary 03/27/18 09:00 Blood Culture (Wb) - Right Hand Blood Culture - Preliminary Laboratory Results 03/28/18 05:10: Magnesium 1.8 Current Medications Acetaminophen (Tylenol) 650 mg PO Q6H PRN PRN PRN Reason: Mild Pain (scale 0-3)/T>100.7 Last Admin: 03/29/18 04:45 Dose: 650 mg Al Hydroxide/Mg Hydroxide (Mylanta Ii) 30 ml PO Q6H PRN PRN PRN Reason: Gastric burning Last Admin: 03/28/18 17:40 Dose: 30 ml Atorvastatin Calcium (Lipitor) 20 mg PO QHS [facility] Last Admin: 03/28/18 21:00 Dose: 20 mg Baclofen (Lioresal) 10 mg PO TIDCM [facility] Last Admin: 03/29/18 08:23 Dose: 10 mg Calcium/Vitamin D (Os-Darren 500mg + D) 1 tablet PO TIDCM [facility] Last Admin: 03/29/18 08:23 Dose: 1 tablet Enoxaparin Sodium (Lovenox) 40 mg SC DAILY@1000 [facility] Last Admin: 03/28/18 10:36 Dose: 40 mg Famotidine (Pepcid) 20 mg PO DAILY [facility] Last Admin: 03/28/18 10:36 Dose: 20 mg Gabapentin (Neurontin) 300 mg PO TIDCM [facility] Last Admin: 03/29/18 08:23 Dose: 300 mg Ceftriaxone Sodium (Rocephin) 1 gm in 50 mls @ 100 mls/hr IV Q24 [facility] Last Admin: 03/28/18 10:23 Dose: 100 mls/hr Levothyroxine Sodium (Synthroid) 88 mcg PO DAILY@0600 [facility] Last Admin: 03/29/18 06:11 Dose: 88 mcg Magnesium Hydroxide (Milk Of Magnesia) 30 ml PO DAILY PRN PRN Reason: Constipation Metoprolol Tartrate (Lopressor (Beta Mandy)) 12.5 mg PO DAILY [facility] Last Admin: 03/28/18 10:35 Dose: 12.5 mg Ondansetron HCl (Zofran) 4 mg IV Q8H PRN PRN PRN Reason: NAUSEA Oxybutynin Chloride (Ditropan) 5 mg PO TID [facility] Last Admin: 03/29/18 06:11 Dose: 5 mg Polyethylene Glycol (Miralax) 17 gm PO DAILY [facility] Last Admin: 03/28/18 10:33 Dose: Not Given Promethazine HCl (Phenergan) 12.5 mg IV Q6H PRN PRN PRN Reason: NAUSEA/VOMITING Senna/Docusate Sodium (Senokot-S, Torri-Colace) 2 tablet PO BID PRN PRN Reason: CONSTIPATION Sodium Chloride () 5 - 30 ml IV UD PRN PRN Reason: SALINE FLUSH Last Admin: 03/28/18 10:26 Dose: 10 ml Zolpidem Tartrate (Ambien (Generic)) 5 mg PO QHS PRN PRN PRN Reason: INSOMNIA Medical Necessity - Tobacco Use Smoking Status: Former smoker Assessment/Plan All Active Problems Encephalopathy acute (Acute) Troponin level elevated (Acute) Exacerbation of multiple sclerosis (Acute) Urinary tract bacterial infections (Acute) Patient is a 47-year-old lady with history of multiple sclerosis who presented with increasing lethargy associated with fever. Her initial assessment was consistent with acute cystitis admitted to a monitored bed for subsequent management 1. Sepsis (present on admission) secondary to acute cystitis due to the presence of an indwelling suprapubic catheter: Patient admitted to regular nursing floor managed with broad-spectrum antibiotic therapy with Rocephin as well as IV fluid resuscitation 2. Acute infectious encephalopathy secondary to above 3. Multiple sclerosis with chronic debilitation patient is wheelchair-bound. Patient is followed by Dr. Caldwell with neurology as outpatient 4. Hypothyroidism-patient is on levothyroxine home dose continued 5. Physical debility secondary to multiple sclerosis 6. DVT prophylaxis SC Lovenox Clinical Impression(s) from Imaging Studies Brain CT 03/27/18 11:04 IMPRESSION: No acute intracranial process. Electronically Signed: Lee Kacy, at 16:42 EDT Tel , Service support , Active Medications Acetaminophen (Tylenol) 650 mg PO Q6H PRN PRN PRN Reason: Mild Pain (scale 0-3)/T>100.7 Last Admin: 03/28/18 09:46 Dose: 650 mg Al Hydroxide/Mg Hydroxide (Mylanta Ii) 30 ml PO Q6H PRN PRN PRN Reason: Gastric burning Atorvastatin Calcium (Lipitor) 20 mg PO QHS [facility] Last Admin: 03/27/18 21:53 Dose: 20 mg Baclofen (Lioresal) 10 mg PO TIDCM [facility] Last Admin: 03/28/18 11:09 Dose: 10 mg Calcium/Vitamin D (Os-Darren 500mg + D) 1 tablet PO TIDCM [facility] Last Admin: 03/28/18 12:21 Dose: 1 tablet Enoxaparin Sodium (Lovenox) 40 mg SC DAILY@1000 [facility] Last Admin: 03/28/18 10:36 Dose: 40 mg Famotidine (Pepcid) 20 mg PO DAILY [facility] Last Admin: 03/28/18 10:36 Dose: 20 mg Gabapentin (Neurontin) 300 mg PO TIDCM [facility] Last Admin: 03/28/18 11:10 Dose: 300 mg Ceftriaxone Sodium (Rocephin) 1 gm in 50 mls @ 100 mls/hr IV Q24 [facility] Last Admin: 03/28/18 10:23 Dose: 100 mls/hr Levothyroxine Sodium (Synthroid) 88 mcg PO DAILY@0600 [facility] Last Admin: 03/28/18 05:21 Dose: 88 mcg Magnesium Hydroxide (Milk Of Magnesia) 30 ml PO DAILY PRN PRN Reason: Constipation Metoprolol Tartrate (Lopressor (Beta Mandy)) 12.5 mg PO DAILY [facility] Last Admin: 03/28/18 10:35 Dose: 12.5 mg Ondansetron HCl (Zofran) 4 mg IV Q8H PRN PRN PRN Reason: NAUSEA Oxybutynin Chloride (Ditropan) 5 mg PO TID [facility] Last Admin: 03/28/18 05:21 Dose: 5 mg Polyethylene Glycol (Miralax) 17 gm PO DAILY [facility] Last Admin: 03/28/18 10:33 Dose: Not Given Promethazine HCl (Phenergan) 12.5 mg IV Q6H PRN PRN PRN Reason: NAUSEA/VOMITING Senna/Docusate Sodium (Senokot-S, Torri-Colace) 2 tablet PO BID PRN PRN Reason: CONSTIPATION Sodium Chloride () 5 - 30 ml IV UD PRN PRN Reason: SALINE FLUSH Last Admin: 03/28/18 10:26 Dose: 10 ml Zolpidem Tartrate (Ambien (Generic)) 5 mg PO QHS PRN PRN PRN Reason: INSOMNIA Code Visit Inpatient E&M: [id number] [facility] Hosp L2
--- NOTE | 2018-03-29 09:08 | PN_ITS ---
Patient Problems: Active and Suspected Problems Encephalopathy acute (Acute) Subjective: Patient seen awaiting urine cultures had a relatively uneventful night Objective: GENERAL: cooperative and in no apparent distress. HEENT: Atraumatic; moist oral mucosa EYES; Anicteric, Normal Conjunctiva NECK; supple, normal thyroid, RESPIRATORY: Diminished to auscultation bilaterally, CARDIOVASCULAR: Regular S1 S2, GI: soft, non-tender, normoactive bowel sounds, : No Renal angle tenderness; suprapubic catheter in place EXTREMITIES: No edema, no clubbing, MUSCULOSKELETAL: No Joint Tenderness; NEURO: Awake; no lateralizing signs. SKIN: No Rash PSYCH; flat affect Vitals/I&O's: Vital Signs Temp Pulse Resp BP Pulse Ox 98.0 F 74 16 108/62 96 03/29/18 03:12 03/29/18 06:58 03/29/18 03:12 03/29/18 03:12 03/29/18 07:24 Oxygen Delivery Method Room Air Weight: 54.43 kg Body Mass Index (BMI) 23.4 Intake and Output for Last 24 Hours 03/27/18 03/28/18 03/29/18 23:59 23:59 23:59 Intake Total 3663 / 3663 1582 / 1582 480 / 480 Output Total 1550 / 1550 1350 / 1350 375 / 375 Balance 2113 / 2113 232 / 232 105 / 105 Microbiology Past 72 Hours 03/27/18 08:35 Blood Culture (Wb) - Venous Blood Culture - Preliminary 03/27/18 09:00 Blood Culture (Wb) - Right Hand Blood Culture - Preliminary Laboratory Results 03/28/18 05:10: Magnesium 1.8 Current Medications Acetaminophen (Tylenol) 650 mg PO Q6H PRN PRN PRN Reason: Mild Pain (scale 0-3)/T>100.7 Last Admin: 03/29/18 04:45 Dose: 650 mg Al Hydroxide/Mg Hydroxide (Mylanta Ii) 30 ml PO Q6H PRN PRN PRN Reason: Gastric burning Last Admin: 03/28/18 17:40 Dose: 30 ml Atorvastatin Calcium (Lipitor) 20 mg PO QHS [facility] Last Admin: 03/28/18 21:00 Dose: 20 mg Baclofen (Lioresal) 10 mg PO TIDCM [facility] Last Admin: 03/29/18 08:23 Dose: 10 mg Calcium/Vitamin D (Os-Darren 500mg + D) 1 tablet PO TIDCM [facility] Last Admin: 03/29/18 08:23 Dose: 1 tablet Enoxaparin Sodium (Lovenox) 40 mg SC DAILY@1000 [facility] Last Admin: 03/28/18 10:36 Dose: 40 mg Famotidine (Pepcid) 20 mg PO DAILY [facility] Last Admin: 03/28/18 10:36 Dose: 20 mg Gabapentin (Neurontin) 300 mg PO TIDCM [facility] Last Admin: 03/29/18 08:23 Dose: 300 mg Ceftriaxone Sodium (Rocephin) 1 gm in 50 mls @ 100 mls/hr IV Q24 [facility] Last Admin: 03/28/18 10:23 Dose: 100 mls/hr Levothyroxine Sodium (Synthroid) 88 mcg PO DAILY@0600 [facility] Last Admin: 03/29/18 06:11 Dose: 88 mcg Magnesium Hydroxide (Milk Of Magnesia) 30 ml PO DAILY PRN PRN Reason: Constipation Metoprolol Tartrate (Lopressor (Beta Mandy)) 12.5 mg PO DAILY [facility] Last Admin: 03/28/18 10:35 Dose: 12.5 mg Ondansetron HCl (Zofran) 4 mg IV Q8H PRN PRN PRN Reason: NAUSEA Oxybutynin Chloride (Ditropan) 5 mg PO TID [facility] Last Admin: 03/29/18 06:11 Dose: 5 mg Polyethylene Glycol (Miralax) 17 gm PO DAILY [facility] Last Admin: 03/28/18 10:33 Dose: Not Given Promethazine HCl (Phenergan) 12.5 mg IV Q6H PRN PRN PRN Reason: NAUSEA/VOMITING Senna/Docusate Sodium (Senokot-S, Torri-Colace) 2 tablet PO BID PRN PRN Reason: CONSTIPATION Sodium Chloride () 5 - 30 ml IV UD PRN PRN Reason: SALINE FLUSH Last Admin: 03/28/18 10:26 Dose: 10 ml Zolpidem Tartrate (Ambien (Generic)) 5 mg PO QHS PRN PRN PRN Reason: INSOMNIA Medical Necessity - Tobacco Use Smoking Status: Former smoker Assessment/Plan All Active Problems Encephalopathy acute (Acute) Troponin level elevated (Acute) Exacerbation of multiple sclerosis (Acute) Urinary tract bacterial infections (Acute) Patient is a 47-year-old lady with history of multiple sclerosis who presented with increasing lethargy associated with fever. Her initial assessment was consistent with acute cystitis admitted to a monitored bed for subsequent management 1. Sepsis (present on admission) secondary to acute cystitis due to the presence of an indwelling suprapubic catheter: Patient admitted to regular nursing floor managed with broad-spectrum antibiotic therapy with Rocephin as well as IV fluid resuscitation 2. Acute infectious encephalopathy secondary to above 3. Multiple sclerosis with chronic debilitation patient is wheelchair-bound. Patient is followed by Dr. Caldwell with neurology as outpatient 4. Hypothyroidism-patient is on levothyroxine home dose continued 5. Physical debility secondary to multiple sclerosis 6. DVT prophylaxis SC Lovenox Clinical Impression(s) from Imaging Studies Brain CT 03/27/18 11:04 IMPRESSION: No acute intracranial process. Electronically Signed: Lee Kacy, at 16:42 EDT Tel , Service support , Active Medications Acetaminophen (Tylenol) 650 mg PO Q6H PRN PRN PRN Reason: Mild Pain (scale 0-3)/T>100.7 Last Admin: 03/28/18 09:46 Dose: 650 mg Al Hydroxide/Mg Hydroxide (Mylanta Ii) 30 ml PO Q6H PRN PRN PRN Reason: Gastric burning Atorvastatin Calcium (Lipitor) 20 mg PO QHS [facility] Last Admin: 03/27/18 21:53 Dose: 20 mg Baclofen (Lioresal) 10 mg PO TIDCM [facility] Last Admin: 03/28/18 11:09 Dose: 10 mg Calcium/Vitamin D (Os-Darren 500mg + D) 1 tablet PO TIDCM [facility] Last Admin: 03/28/18 12:21 Dose: 1 tablet Enoxaparin Sodium (Lovenox) 40 mg SC DAILY@1000 [facility] Last Admin: 03/28/18 10:36 Dose: 40 mg Famotidine (Pepcid) 20 mg PO DAILY [facility] Last Admin: 03/28/18 10:36 Dose: 20 mg Gabapentin (Neurontin) 300 mg PO TIDCM [facility] Last Admin: 03/28/18 11:10 Dose: 300 mg Ceftriaxone Sodium (Rocephin) 1 gm in 50 mls @ 100 mls/hr IV Q24 [facility] Last Admin: 03/28/18 10:23 Dose: 100 mls/hr Levothyroxine Sodium (Synthroid) 88 mcg PO DAILY@0600 [facility] Last Admin: 03/28/18 05:21 Dose: 88 mcg Magnesium Hydroxide (Milk Of Magnesia) 30 ml PO DAILY PRN PRN Reason: Constipation Metoprolol Tartrate (Lopressor (Beta Mandy)) 12.5 mg PO DAILY [facility] Last Admin: 03/28/18 10:35 Dose: 12.5 mg Ondansetron HCl (Zofran) 4 mg IV Q8H PRN PRN PRN Reason: NAUSEA Oxybutynin Chloride (Ditropan) 5 mg PO TID [facility] Last Admin: 03/28/18 05:21 Dose: 5 mg Polyethylene Glycol (Miralax) 17 gm PO DAILY [facility] Last Admin: 03/28/18 10:33 Dose: Not Given Promethazine HCl (Phenergan) 12.5 mg IV Q6H PRN PRN PRN Reason: NAUSEA/VOMITING Senna/Docusate Sodium (Senokot-S, Torri-Colace) 2 tablet PO BID PRN PRN Reason: CONSTIPATION Sodium Chloride () 5 - 30 ml IV UD PRN PRN Reason: SALINE FLUSH Last Admin: 03/28/18 10:26 Dose: 10 ml Zolpidem Tartrate (Ambien (Generic)) 5 mg PO QHS PRN PRN PRN Reason: INSOMNIA Code Visit Inpatient E&M: [id number] [facility] Hosp L2
[2018-03-29] MEDS: Metoprolol Tartrate 25 MG Tablet 12.5 MG PO (09:11)
[2018-03-29] MEDS: Ceftriaxone 1 GM/50 ML BAG IV (09:11)
[2018-03-29] MEDS: Enoxaparin 40 MG/0.4 ML Syringe SC (09:11)
[2018-03-29] MEDS: Famotidine 20 MG Tablet PO (09:12)
[2018-03-29] MEDS: 0.9% NaCl Peripheral Flush Adult/Peds IV ×3 (09:13→23:32)
[2018-03-29 09:48] LABS: Hematocrit 32.9 % (37-47); Mean Corp Hgb Conc 33.4 g/gl (32-36); Mean Corpuscular Hgb 29.3 pg (27.0-32.0); Mean Corpuscular Volume 87.5 fL (81-99); Mean Platelet Vol. 10.2 fl (6.2-12.0); Platelet Count 131 K/mm3 (150-450); RBC Distribution Width CV 14.6 % (11.6-14.6); RBC Distribution Width SD 46.9 fl (35.1-43.9); Red Blood Count 3.76 M/mm3 (4.2-5.4); Scan Indicated on CBC? Y/N NO; White Blood Count 7.6 K/mm3 (4.4-11.0)
[2018-03-29 10:12] LABS: Anion Gap 10 (5-15); BUN 21 mg/dL (7-18); BUN/Creat Ratio 18.8 RATIO (10-20); Chloride 110 mmol/L (98-107); Creatinine, Serum 1.12 mg/dL (0.55-1.02); EST Glomerular Filtration Rate 55 mL/min (>60); Est Glom Filt Rate - Afr Amer 66 mL/min (>60); Estimated Creatinine Clearance 43.64 ml/min; Glucose 137 mg/dL (74-106); Magnesium 2.3 mg/dL (1.6-2.6); Potassium 3.7 mmol/L (3.5-5.1); Sodium Level 140 mmol/L (136-145)
[2018-03-29] MEDS: Glycerin/Hypromellose/PEG400 15 ml Bottle 2 DRP EACH EYE (13:30)
[2018-03-29] MEDS: Atorvastatin Calcium 20 MG Tablet PO (21:35)
[2018-03-29] MEDS: Ondansetron 4 MG/2 ML Vial IV (23:32)
[2018-03-30] VITALS (14 sets, daily range): BP systolic 128–145; BP diastolic 76–84; PULSE 79–109; RESP 18–28; TEMP 36.7–37.2; O2SAT 92–96
[2018-03-30] MEDS: Oxybutynin 5 MG Tablet PO ×3 (05:02→21:53)
[2018-03-30] MEDS: Levothyroxine 88 MCG Tablet PO (05:02)
[2018-03-30 05:28] LABS: Hemoglobin 11.9 g/dl (12.0-15.0); Mean Corpuscular Hgb 29.7 pg (27.0-32.0); Mean Corpuscular Volume 87.3 fL (81-99); Mean Platelet Vol. 10.1 fl (6.2-12.0); Platelet Count 147 K/mm3 (150-450); RBC Distribution Width CV 14.6 % (11.6-14.6); RBC Distribution Width SD 46.5 fl (35.1-43.9); Red Blood Count 4.01 M/mm3 (4.2-5.4)
[2018-03-30 05:30] LABS: Scan Indicated on CBC? Y/N NO
[2018-03-30 05:45] LABS: Anion Gap 7 (5-15); BUN 18 mg/dL (7-18); Calcium,Total 8.3 mg/dL (8.5-10.1); Chloride 109 mmol/L (98-107); EST Glomerular Filtration Rate 63 mL/min (>60); Est Glom Filt Rate - Afr Amer 76 mL/min (>60); Estimated Creatinine Clearance 48.88 ml/min; Glucose 78 mg/dL (74-106); Potassium 4.1 mmol/L (3.5-5.1); Sodium Level 141 mmol/L (136-145)
--- NOTE | 2018-03-30 07:46 | MRI_ITS ---
STUDY: MRI BRAIN WITH AND WITHOUT CONTRAST REASON FOR EXAM: Female, 47 years old. Multiple sclerosis TECHNIQUE: Standardized multiplanar fat and water weighted pulse sequences were obtained. 6 ml of Gadavist contrast material was administered intravenously for the contrast portion of the examination. COMPARISON: September 27, 2013. FINDINGS: Mild atrophy and moderate to severe periventricular white matter disease with multiple lesions involving the corpus callosum consistent with clinical history of multiple sclerosis. There are bilateral lesions in the middle cerebellar peduncles as well as involvement of the periaqueductal starkey matter.. There are no enhancing plaques following contrast administration to suggest acute demyelination Normal bilateral basal ganglia. Normal thalami. There is no extra-axial fluid accumulation. Normal flow voids within the major intracranial circulation suggesting patency by spin echo criteria. Normal venous enhancement. There is no enhancing intra-axial or extra-axial abnormality. Normal sella turcica, pituitary gland, infundibular stalk, optic chiasm and hypothalamus. Normal tectal plate and pineal gland. Normal midbrain, dinh and medulla. Normal cerebellum. Normal basal cisterns. Normal bilateral temporal bones. Normal bilateral internal auditory canals. No demonstrated orbital abnormality, within the constraints of a routine brain study. There is minor mucosal thickening of the ethmoid air cells. Normal calvarium and skull base. Normal visualized soft tissue structures. Normal visualized upper cervical spine. Findings are relatively stable since prior study MRI/Brain W/WO Contrast IMPRESSION: Findings consistent with known multiple sclerosis No evidence to suggest acute demyelination Electronically Signed: Angus Purvis MD at 16:06 EDT , Service support ,
[2018-03-30] MEDS: Gabapentin 300 MG Capsule PO ×3 (09:28→16:11)
[2018-03-30] MEDS: Baclofen 10 MG Tablet PO ×3 (09:28→16:11)
[2018-03-30] MEDS: Calcium Carb/Vitamin D 1 TABLET Tablet PO ×2 (09:29→11:20)
[2018-03-30] MEDS: Metoprolol Tartrate 25 MG Tablet 12.5 MG PO (09:31)
[2018-03-30] MEDS: Enoxaparin 40 MG/0.4 ML Syringe SC (09:32)
[2018-03-30] MEDS: Famotidine 20 MG Tablet PO (09:33)
[2018-03-30] MEDS: Ceftriaxone 1 GM/50 ML BAG IV (09:33)
--- NOTE | 2018-03-30 10:02 | PCM.PN.HOSP ---
Patient Problems: Active and Suspected Problems Encephalopathy acute (Acute) Subjective: Patient seen. Admitted improvements in her overall clinical condition. Urine cultures so far Preliminary positive for Stenotrophomonas maltophilia patient was on Rocephin discontinued started on Bactrim consultation placed to infectious disease Objective: GENERAL: cooperative and in no apparent distress. HEENT: Atraumatic; moist oral mucosa EYES; Anicteric, Normal Conjunctiva NECK; supple, normal thyroid, RESPIRATORY: Diminished to auscultation bilaterally, CARDIOVASCULAR: Regular S1 S2, GI: soft, non-tender, normoactive bowel sounds, : No Renal angle tenderness; suprapubic catheter in place EXTREMITIES: No edema, no clubbing, MUSCULOSKELETAL: No Joint Tenderness; NEURO: Awake; no lateralizing signs. SKIN: No Rash PSYCH; flat affect Vitals/I&O's: Vital Signs Temp Pulse Resp BP Pulse Ox 98.1 F 79 20 H 137/81 H 96 03/30/18 10:00 03/30/18 10:00 03/30/18 10:00 03/30/18 10:00 03/30/18 10:00 Oxygen Delivery Method Room Air Weight: 54.43 kg Body Mass Index (BMI) 23.4 Intake and Output for Last 24 Hours 03/28/18 03/29/18 03/30/18 23:59 23:59 23:59 Intake Total 1582 / 1582 1347.1 / 1347.1 240 / 240 Output Total 1350 / 1350 1100 / 1100 750 / 750 Balance 232 / 232 247.1 / 247.1 -510 / -510 Microbiology Past 72 Hours 03/27/18 09:50 Urine, Catheterized Urine Culture - Preliminary Stenotrophomonas maltophilia 03/27/18 08:35 Blood Culture (Wb) - Venous Blood Culture - Preliminary 03/27/18 09:00 Blood Culture (Wb) - Right Hand Blood Culture - Preliminary Laboratory Results 03/29/18 09:34: Sodium 140, Potassium 3.7, Chloride 110 H, Carbon Dioxide 20.0 L, Anion Gap 10, BUN 21 H, Creatinine 1.12 H, Estim Creat Clear Calc 43.64, Est GFR (MDRD) Af Amer 66, Est GFR (MDRD) Non-Af 55 L, BUN/Creatinine Ratio 18.8, Glucose 137 H, Calcium 8.0 L, Magnesium 2.3 03/30/18 05:08: WBC 9.0, RBC 4.01 L, Hgb 11.9 L, Hct 35.0 L, MCV 87.3, MCH 29.7, MCHC 34.0, RDW 14.6, RDW Differential 46.5 H, Plt Count 147 L, MPV 10.1 03/30/18 05:08: Sodium 141, Potassium 4.1, Chloride 109 H, Carbon Dioxide 25.0, Anion Gap 7, BUN 18, Creatinine 1.00, Estim Creat Clear Calc 48.88, Est GFR (MDRD) Af Amer 76, Est GFR (MDRD) Non-Af 63, BUN/Creatinine Ratio 18.0, Glucose 78, Calcium 8.3 L Current Medications Acetaminophen (Tylenol) 650 mg PO Q6H PRN PRN PRN Reason: Mild Pain (scale 0-3)/T>100.7 Last Admin: 03/29/18 14:19 Dose: 650 mg Al Hydroxide/Mg Hydroxide (Mylanta Ii) 30 ml PO Q6H PRN PRN PRN Reason: Gastric burning Last Admin: 03/28/18 17:40 Dose: 30 ml Atorvastatin Calcium (Lipitor) 20 mg PO QHS [facility] Last Admin: 03/29/18 21:35 Dose: 20 mg Baclofen (Lioresal) 10 mg PO TIDCM [facility] Last Admin: 03/30/18 09:28 Dose: 10 mg Calcium/Vitamin D (Os-Darren 500mg + D) 1 tablet PO TIDCM [facility] Last Admin: 03/30/18 09:29 Dose: 1 tablet Enoxaparin Sodium (Lovenox) 40 mg SC DAILY@1000 [facility] Last Admin: 03/30/18 09:32 Dose: 40 mg Famotidine (Pepcid) 20 mg PO DAILY [facility] Last Admin: 03/30/18 09:33 Dose: 20 mg Gabapentin (Neurontin) 300 mg PO TIDCM [facility] Last Admin: 03/30/18 09:28 Dose: 300 mg Levothyroxine Sodium (Synthroid) 88 mcg PO DAILY@0600 [facility] Last Admin: 03/30/18 05:02 Dose: 88 mcg Magnesium Hydroxide (Milk Of Magnesia) 30 ml PO DAILY PRN PRN Reason: Constipation Metoprolol Tartrate (Lopressor (Beta Mandy)) 12.5 mg PO DAILY [facility] Last Admin: 03/30/18 09:31 Dose: 12.5 mg Ondansetron HCl (Zofran) 4 mg IV Q8H PRN PRN PRN Reason: NAUSEA Last Admin: 03/29/18 23:32 Dose: 4 mg Oxybutynin Chloride (Ditropan) 5 mg PO TID [facility] Last Admin: 03/30/18 05:02 Dose: 5 mg Polyethylene Glycol (Miralax) 17 gm PO DAILY [facility] Last Admin: 03/30/18 09:33 Dose: Not Given Promethazine HCl (Phenergan) 12.5 mg IV Q6H PRN PRN PRN Reason: NAUSEA/VOMITING Senna/Docusate Sodium (Senokot-S, Torri-Colace) 2 tablet PO BID PRN PRN Reason: CONSTIPATION Sodium Chloride () 5 - 30 ml IV UD PRN PRN Reason: SALINE FLUSH Last Admin: 03/29/18 23:32 Dose: 20 ml Zolpidem Tartrate (Ambien (Generic)) 5 mg PO QHS PRN PRN PRN Reason: INSOMNIA Medical Necessity - Tobacco Use Smoking Status: Former smoker Assessment/Plan All Active Problems Encephalopathy acute (Acute) Troponin level elevated (Acute) Exacerbation of multiple sclerosis (Acute) Urinary tract bacterial infections (Acute) Patient is a 47-year-old lady with history of multiple sclerosis who presented with increasing lethargy associated with fever. Her initial assessment was consistent with acute cystitis admitted to a monitored bed for subsequent management 1. Sepsis (present on admission) secondary to acute cystitis with Stenotrophomonas maltophilia due to the presence of an indwelling suprapubic catheter: Patient admitted to regular nursing floor managed with broad-spectrum antibiotic therapy with Rocephin as well as IV fluid resuscitation. Urine cultures so far Preliminary positive for Stenotrophomonas maltophilia patient was on Rocephin discontinued started on Bactrim consultation placed to infectious disease 2. Acute infectious encephalopathy secondary to above 3. Multiple sclerosis with chronic debilitation patient is wheelchair-bound. Patient is followed by Dr. Caldwell with neurology as outpatient 4. Hypothyroidism-patient is on levothyroxine home dose continued 5. Physical debility secondary to multiple sclerosis 6. DVT prophylaxis SC Lovenox Microbiology 03/27/18 09:50 Urine, Catheterized Urine Culture - Preliminary Stenotrophomonas maltophilia 03/27/18 08:35 Blood Culture (Wb) - Venous Blood Culture - Preliminary Code Visit Inpatient E&M: 81553 Subs Hosp L2
--- NOTE | 2018-03-30 10:05 | PN_ITS ---
Patient Problems: Active and Suspected Problems Encephalopathy acute (Acute) Subjective: Patient seen. Admitted improvements in her overall clinical condition. Urine cultures so far Preliminary positive for Stenotrophomonas maltophilia patient was on Rocephin discontinued started on Bactrim consultation placed to infectious disease Objective: GENERAL: cooperative and in no apparent distress. HEENT: Atraumatic; moist oral mucosa EYES; Anicteric, Normal Conjunctiva NECK; supple, normal thyroid, RESPIRATORY: Diminished to auscultation bilaterally, CARDIOVASCULAR: Regular S1 S2, GI: soft, non-tender, normoactive bowel sounds, : No Renal angle tenderness; suprapubic catheter in place EXTREMITIES: No edema, no clubbing, MUSCULOSKELETAL: No Joint Tenderness; NEURO: Awake; no lateralizing signs. SKIN: No Rash PSYCH; flat affect Vitals/I&O's: Vital Signs Temp Pulse Resp BP Pulse Ox 98.1 F 79 20 H 137/81 H 96 03/30/18 10:00 03/30/18 10:00 03/30/18 10:00 03/30/18 10:00 03/30/18 10:00 Oxygen Delivery Method Room Air Weight: 54.43 kg Body Mass Index (BMI) 23.4 Intake and Output for Last 24 Hours 03/28/18 03/29/18 03/30/18 23:59 23:59 23:59 Intake Total 1582 / 1582 1347.1 / 1347.1 240 / 240 Output Total 1350 / 1350 1100 / 1100 750 / 750 Balance 232 / 232 247.1 / 247.1 -510 / -510 Microbiology Past 72 Hours 03/27/18 09:50 Urine, Catheterized Urine Culture - Preliminary Stenotrophomonas maltophilia 03/27/18 08:35 Blood Culture (Wb) - Venous Blood Culture - Preliminary 03/27/18 09:00 Blood Culture (Wb) - Right Hand Blood Culture - Preliminary Laboratory Results 03/29/18 09:34: Sodium 140, Potassium 3.7, Chloride 110 H, Carbon Dioxide 20.0 L , Anion Gap 10, BUN 21 H, Creatinine 1.12 H, Estim Creat Clear Calc 43.64, Est GFR (MDRD) Af Amer 66, Est GFR (MDRD) Non-Af 55 L, BUN/Creatinine Ratio 18.8, Glucose 137 H, Calcium 8.0 L, Magnesium 2.3 03/30/18 05:08: WBC 9.0, RBC 4.01 L, Hgb 11.9 L, Hct 35.0 L, MCV 87.3, MCH 29.7, MCHC 34.0, RDW 14.6, RDW Differential 46.5 H, Plt Count 147 L, MPV 10.1 03/30/18 05:08: Sodium 141, Potassium 4.1, Chloride 109 H, Carbon Dioxide 25.0, Anion Gap 7, BUN 18, Creatinine 1.00, Estim Creat Clear Calc 48.88, Est GFR (MDRD) Af Amer 76, Est GFR (MDRD) Non-Af 63, BUN/Creatinine Ratio 18.0, Glucose 78, Calcium 8.3 L Current Medications Acetaminophen (Tylenol) 650 mg PO Q6H PRN PRN PRN Reason: Mild Pain (scale 0-3)/T>100.7 Last Admin: 03/29/18 14:19 Dose: 650 mg Al Hydroxide/Mg Hydroxide (Mylanta Ii) 30 ml PO Q6H PRN PRN PRN Reason: Gastric burning Last Admin: 03/28/18 17:40 Dose: 30 ml Atorvastatin Calcium (Lipitor) 20 mg PO QHS [facility] Last Admin: 03/29/18 21:35 Dose: 20 mg Baclofen (Lioresal) 10 mg PO TIDCM [facility] Last Admin: 03/30/18 09:28 Dose: 10 mg Calcium/Vitamin D (Os-Darren 500mg + D) 1 tablet PO TIDCM [facility] Last Admin: 03/30/18 09:29 Dose: 1 tablet Enoxaparin Sodium (Lovenox) 40 mg SC DAILY@1000 [facility] Last Admin: 03/30/18 09:32 Dose: 40 mg Famotidine (Pepcid) 20 mg PO DAILY [facility] Last Admin: 03/30/18 09:33 Dose: 20 mg Gabapentin (Neurontin) 300 mg PO TIDCM [facility] Last Admin: 03/30/18 09:28 Dose: 300 mg Levothyroxine Sodium (Synthroid) 88 mcg PO DAILY@0600 [facility] Last Admin: 03/30/18 05:02 Dose: 88 mcg Magnesium Hydroxide (Milk Of Magnesia) 30 ml PO DAILY PRN PRN Reason: Constipation Metoprolol Tartrate (Lopressor (Beta Mandy)) 12.5 mg PO DAILY [facility] Last Admin: 03/30/18 09:31 Dose: 12.5 mg Ondansetron HCl (Zofran) 4 mg IV Q8H PRN PRN PRN Reason: NAUSEA Last Admin: 03/29/18 23:32 Dose: 4 mg Oxybutynin Chloride (Ditropan) 5 mg PO TID [facility] Last Admin: 03/30/18 05:02 Dose: 5 mg Polyethylene Glycol (Miralax) 17 gm PO DAILY [facility] Last Admin: 03/30/18 09:33 Dose: Not Given Promethazine HCl (Phenergan) 12.5 mg IV Q6H PRN PRN PRN Reason: NAUSEA/VOMITING Senna/Docusate Sodium (Senokot-S, Torri-Colace) 2 tablet PO BID PRN PRN Reason: CONSTIPATION Sodium Chloride () 5 - 30 ml IV UD PRN PRN Reason: SALINE FLUSH Last Admin: 03/29/18 23:32 Dose: 20 ml Zolpidem Tartrate (Ambien (Generic)) 5 mg PO QHS PRN PRN PRN Reason: INSOMNIA Medical Necessity - Tobacco Use Smoking Status: Former smoker Assessment/Plan All Active Problems Encephalopathy acute (Acute) Troponin level elevated (Acute) Exacerbation of multiple sclerosis (Acute) Urinary tract bacterial infections (Acute) Patient is a 47-year-old lady with history of multiple sclerosis who presented with increasing lethargy associated with fever. Her initial assessment was consistent with acute cystitis admitted to a monitored bed for subsequent management 1. Sepsis (present on admission) secondary to acute cystitis with Stenotrophomonas maltophilia due to the presence of an indwelling suprapubic catheter: Patient admitted to regular nursing floor managed with broad-spectrum antibiotic therapy with Rocephin as well as IV fluid resuscitation. Urine cultures so far Preliminary positive for Stenotrophomonas maltophilia patient was on Rocephin discontinued started on Bactrim consultation placed to infectious disease 2. Acute infectious encephalopathy secondary to above 3. Multiple sclerosis with chronic debilitation patient is wheelchair-bound. Patient is followed by Dr. Caldwell with neurology as outpatient 4. Hypothyroidism-patient is on levothyroxine home dose continued 5. Physical debility secondary to multiple sclerosis 6. DVT prophylaxis SC Lovenox Microbiology 03/27/18 09:50 Urine, Catheterized Urine Culture - Preliminary Stenotrophomonas maltophilia 03/27/18 08:35 Blood Culture (Wb) - Venous Blood Culture - Preliminary Code Visit Inpatient E&M: [id number] Subs Hosp L2
[2018-03-30] MEDS: Smz/Tmp Ds Tablet 1 TABLET PO ×2 (11:33→21:53)
--- NOTE | 2018-03-30 12:22 | NURSING ---
READ AND REVIEWED SN CHARTING.
--- NOTE | 2018-03-30 13:21 | NURSING ---
Read and reviewed SN documentation
[2018-03-30] MEDS: proMETHazine 25 MG/ML Syringe 12.5 MG IV (13:55)
--- NOTE | 2018-03-30 15:15 | RAD_ITS ---
STUDY: X-RAY CHEST REASON FOR EXAM: Female, 47 years old. Cough TECHNIQUE: Single AP portable view of the chest. COMPARISON: 03/27/2018.09/27/2013. FINDINGS: Small atelectasis right base again lower lobe not significantly changed since most recent examination. There is no demonstrated pleural abnormality. There is borderline cardiomegaly. Normal mediastinum and venessa. Normal visualized pulmonary arteries. Normal visualized aortic arch and descending thoracic aorta. Normal visualized thoracic spine. Normal visualized ribs, clavicles, and shoulders. There is no demonstrated abnormality of the visualized soft tissue structures of the upper abdomen. RAD/Chest 1 View (Portable) IMPRESSION: Stable atelectasis right base and borderline cardiac size since most recent exam. No pulmonary edema, congestive heart failure or confluent pneumonia. Electronically Signed: Ashley Stewart MD at 3:21 EDT , Service support ,
[2018-03-30] MEDS: Atorvastatin Calcium 20 MG Tablet PO (21:53)
[2018-03-30] MEDS: 0.9% NaCl Peripheral Flush Adult/Peds IV ×2 (21:53→22:24)
[2018-03-30] MEDS: Acetaminophen 325 MG Tablet 650 MG PO (21:53)
[2018-03-31] VITALS (12 sets, daily range): BP systolic 110–132; BP diastolic 65–77; PULSE 85–108; RESP 16–18; TEMP 36.4–37.2; O2SAT 92–97
[2018-03-31] MEDS: Ondansetron 4 MG/2 ML Vial IV ×3 (03:22→23:28)
[2018-03-31] MEDS: 0.9% NaCl Peripheral Flush Adult/Peds IV ×4 (03:22→23:32)
[2018-03-31] MEDS: Oxybutynin 5 MG Tablet PO ×3 (05:56→23:21)
[2018-03-31] MEDS: Levothyroxine 88 MCG Tablet PO (05:56)
[2018-03-31 06:48] LABS: Hematocrit 35.4 % (37-47); Hemoglobin 11.9 g/dl (12.0-15.0); Mean Corp Hgb Conc 33.6 g/gl (32-36); Mean Corpuscular Hgb 29.5 pg (27.0-32.0); Mean Corpuscular Volume 87.8 fL (81-99); Mean Platelet Vol. 11.1 fl (6.2-12.0); Platelet Count 193 K/mm3 (150-450); RBC Distribution Width CV 14.5 % (11.6-14.6); RBC Distribution Width SD 46.2 fl (35.1-43.9); Red Blood Count 4.03 M/mm3 (4.2-5.4); White Blood Count 12.1 K/mm3 (4.4-11.0)
[2018-03-31 06:52] LABS: Scan Indicated on CBC? Y/N NO
[2018-03-31 07:04] LABS: Anion Gap 9 (5-15); BUN 16 mg/dL (7-18); BUN/Creat Ratio 15.8 RATIO (10-20); Calcium,Total 8.5 mg/dL (8.5-10.1); Chloride 106 mmol/L (98-107); Creatinine, Serum 1.01 mg/dL (0.55-1.02); EST Glomerular Filtration Rate 62 mL/min (>60); Est Glom Filt Rate - Afr Amer 75 mL/min (>60); Glucose 76 mg/dL (74-106); Potassium 3.9 mmol/L (3.5-5.1); Sodium Level 140 mmol/L (136-145)
[2018-03-31] MEDS: Gabapentin 300 MG Capsule PO ×3 (08:46→17:59)
[2018-03-31] MEDS: Calcium Carb/Vitamin D 1 TABLET Tablet PO ×3 (08:46→17:59)
[2018-03-31] MEDS: Baclofen 10 MG Tablet PO ×3 (08:46→17:59)
[2018-03-31] MEDS: Metoprolol Tartrate 25 MG Tablet 12.5 MG PO (08:47)
[2018-03-31] MEDS: Famotidine 20 MG Tablet PO (08:47)
[2018-03-31] MEDS: Enoxaparin 40 MG/0.4 ML Syringe SC (08:49)
--- NOTE | 2018-03-31 10:38 | PCM.HP.ID ---
Problem List (1) Sepsis Status: Acute Reason for Consult: (+) cxs Consulted by: Dr. Downing History of Present Illness: The patient is a 47 year old F with MS and suprapubic cath who presented 03/27 with 2 days of fever, confusion, lethargy. Had infusion of OCREVUS on 03/24 via PIV. The day before had some cloudy urine. No abd pain, no blood in stool, no n/v/d. No cough or SOB. Came to ED, cxs sent, started on ceftriaxone, feeling much better. Ucx grew Steno, then Bcx x2 grew B. frag. She does not tolerate bactrim due to nausea. Full ROS performed and neg except as noted above. Catheter gets changed [id number] - Medical History Past Medical History (Chronic Problems): Chronic Problems Multiple sclerosis (Chronic) Hypothyroidism (Chronic) Allergies/Adverse Reactions: Allergies acetaminophen [From Percocet] Adverse Reaction (Verified 03/27/18 08:13) Other MESSES WITH MY HEAD ciprofloxacin [From Cipro] Adverse Reaction (Verified 03/27/18 08:13) Nausea/Vom/Diarrhea nitrofurantoin [From Macrodantin] Adverse Reaction (Verified 03/27/18 08:13) Nausea/Vom/Diarrhea oxycodone [From Percocet] Adverse Reaction (Verified 03/27/18 08:13) Other MESSES WITH MY HEAD Home Medications: Ambulatory Orders Medication Instructions Recorded Baclofen [Lioresal] 20 mg PO 4X/DAY 08/27/13 Atorvastatin Calcium [Lipitor] 20 mg PO QHS 09/24/17 Gabapentin [Neurontin] 300 mg PO TIDCM 09/24/17 Levothyroxine Sodium [Synthroid] 88 mcg PO DAILY 03/27/18 Metoprolol Tartrate 12.5 mg PO DAILY 03/27/18 Oxybutynin [Ditropan] 5 mg PO TID 03/27/18 - Social History SMOKING STATUS:: Former smoker Vital Signs Temp Pulse Resp BP Pulse Ox 97.5 F L 107 H 18 122/77 H 97 03/31/18 08:28 03/31/18 08:47 03/31/18 08:28 03/31/18 08:28 03/31/18 08:28 Oxygen Delivery Method Room Air Weight: 54.43 kg Body Mass Index (BMI) 23.4 Microbiology Past 72 Hours 03/27/18 09:00 Blood Culture - Final Blood Culture (Wb) - Right Hand Bacteroides fragilis 03/27/18 08:35 Blood Culture - Final Blood Culture (Wb) - Venous Bacteroides fragilis 03/27/18 09:50 Urine Culture - Preliminary Urine, Catheterized Stenotrophomonas maltophilia Laboratory Tests Past 24 Hrs 03/31/18 03/31/18 05:20 05:20 WBC 12.1 H RBC 4.03 L Hgb 11.9 L Hct 35.4 L MCV 87.8 MCH 29.5 MCHC 33.6 RDW 14.5 RDW Differential 46.2 H Plt Count 193 MPV 11.1 Sodium 140 Potassium 3.9 Chloride 106 Carbon Dioxide 25.0 Anion Gap 9 BUN 16 Creatinine 1.01 Estim Creat Clear Calc 48.40 Est GFR (MDRD) Af Amer 75 Est GFR (MDRD) Non-Af 62 BUN/Creatinine Ratio 15.8 Glucose 76 Calcium 8.5 - Other Studies Radiology: [] reviewed Other Studies: [] Route of nutrition/ use of supplements: [] Nutritional Intake: [] IV Site: [] Major Catheter: [] - Physical Exam General: Alert, Oriented x3, Cooperative, No apparent distress HEENT: Atraumatic, PERRLA, EOMI Neck: Supple, No Nodes Lungs: Clear to auscultation, Normal air movement Cardiovascular: Regular rate, Regular Rhythm, No murmurs Abdomen: Soft, Non Tender, Non-Distended, - - suprapubic no redness or drainage Extremities: No edema Skin: No rashes IV Site: Peripheral, without redness Musculoskeletal: No Tenderness to Palpation of Joints or Extremities Neurological: Cranial nerves II-XII grossly intact, - - motor deficit with MS - Assessment/Plan Antibiotics: [] Assessment/Plan: [] Active and Suspected Problems Encephalopathy acute (Acute) sepsis due to B. fragilis bacteremia - no clear GI symptoms. Stenotrophomonas in ucx may represent colonization given her improvement without Steno coverage. Will use ceftriaxone and iv flagyl for now. Check CT abd/pelvis to look for GI source of bacteroides. If it is ok, may be able to go home on 10 day course of augmentin. Reports some dizziness with augmentin in past, but she is now bedbound. Will follow, d/w Dr. Downing, thank you.
--- NOTE | 2018-03-31 10:43 | CT_ITS ---
STUDY: CT ABDOMEN AND PELVIS WITH CONTRAST REASON FOR EXAM: Female, 47 years old. Bloating with history of abscess RADIATION DOSAGE (If Supplied By Facility): CTDIvol = ( 15.59 ) mGy, DLP = ( 688.64 ) mGycm TECHNIQUE: Transaxial images were obtained from the dome of the diaphragm to the symphysis pubis without oral contrast. 100 ml of Isovue 300 contrast was administered. Sagittal and coronal images were reconstructed. Individualized dose optimization techniques were used for this CT. COMPARISON: August 28 2013. FINDINGS: There is minor atelectasis within the dependent portion of the lungs.. Heart size is normal. There is a small pericardial effusion. Liver is normal in size. There is no space-occupying lesion. There is mild bile duct dilatation in association with prior cholecystectomy. Normal spleen. Normal pancreas. Normal bilateral adrenal glands. There are numerous nonobstructing calculi in the right kidney and 2 large nonobstructing calculi in the left kidney. However, there is also noted to be moderate bilateral hydronephrosis secondary to a large calculus in the mid left ureter measuring 15 x 10 mm and a large calculus in the mid right ureter measuring 17.4 x 9.3 mm Normal visualized stomach. Nonspecific ileus pattern is noted with diffuse fecal retention in the colon.. The appendix is visualized and appears normal. Atherosclerotic changes of the aorta without evidence for aneurysm. Normal inferior vena cava. Normal retroperitoneum. Bladder is incompletely distended and thick-walled with suprapubic catheter insertion.. There is a heterogeneous appearance to slightly bulky uterus likely representing multiple fibroids. There is a small amount of free fluid in the pelvis Normal abdominal wall. Lumbar spine demonstrates mild spondylosis. CT/Abdomen/Pelvis WITH Contrast IMPRESSION: Bilateral nephrolithiasis. Moderate bilateral hydronephrosis secondary to large calculi in the mid ureters Other findings as above N.B. : The above information has been verbally conveyed by Angus Purvis MD to dr araceli MD, on 03/31/2018 16:43:55 (ET). Electronically Signed: Angus Purvis MD at 16:09 EDT , Service support ,
--- NOTE | 2018-03-31 11:43 | PN_ITS ---
Patient Problems: Active and Suspected Problems Encephalopathy acute (Acute) Sepsis (Acute) Subjective: Seen blood cultures came back positive for Bacteroides fragilis. Case was discussed with Dr. Eli with infectious disease recommended starting patient on Flagyl and Rocephin. Patient apparently did not tolerate Bactrim. CT of the abdomen and pelvis also ordered for subsequent evaluation Objective: GENERAL: cooperative HEENT: Atraumatic; moist oral mucosa EYES; Anicteric, Normal Conjunctiva NECK; supple, normal thyroid, RESPIRATORY: Diminished to auscultation bilaterally, CARDIOVASCULAR: Regular S1 S2, GI: soft, non-tender, normoactive bowel sounds, : No Renal angle tenderness; suprapubic catheter in place EXTREMITIES: No edema, no clubbing, MUSCULOSKELETAL: No Joint Tenderness; NEURO: Awake; no lateralizing signs. SKIN: No Rash PSYCH; flat affect Vitals/I&O's: Vital Signs Temp Pulse Resp BP Pulse Ox 97.5 F L 95 18 122/77 H 97 03/31/18 08:28 03/31/18 11:07 03/31/18 08:28 03/31/18 08:28 03/31/18 08:28 Oxygen Delivery Method Room Air Weight: 54.43 kg Body Mass Index (BMI) 23.4 Intake and Output for Last 24 Hours 03/29/18 03/30/18 03/31/18 23:59 23:59 23:59 Intake Total 1347.1 / 1347.1 1146 / 1146 Output Total 1100 / 1100 1950 / 1950 850 / 850 Balance 247.1 / 247.1 -804 / -804 -850 / -850 Microbiology Past 72 Hours 03/27/18 09:00 Blood Culture (Wb) - Right Hand Blood Culture - Final Bacteroides fragilis 03/27/18 08:35 Blood Culture (Wb) - Venous Blood Culture - Final Bacteroides fragilis 03/27/18 09:50 Urine, Catheterized Urine Culture - Preliminary Stenotrophomonas maltophilia Laboratory Results 03/31/18 05:20: WBC 12.1 H, RBC 4.03 L, Hgb 11.9 L, Hct 35.4 L, MCV 87.8, MCH 29.5, MCHC 33.6, RDW 14.5, RDW Differential 46.2 H, Plt Count 193, MPV 11.1 03/31/18 05:20: Sodium 140, Potassium 3.9, Chloride 106, Carbon Dioxide 25.0, Anion Gap 9, BUN 16, Creatinine 1.01, Estim Creat Clear Calc 48.40, Est GFR (MDRD) Af Amer 75, Est GFR (MDRD) Non-Af 62, BUN/Creatinine Ratio 15.8, Glucose 76, Calcium 8.5 Current Medications Acetaminophen (Tylenol) 650 mg PO Q6H PRN PRN PRN Reason: Mild Pain (scale 0-3)/T>100.7 Last Admin: 03/30/18 21:53 Dose: 650 mg Al Hydroxide/Mg Hydroxide (Mylanta Ii) 30 ml PO Q6H PRN PRN PRN Reason: Gastric burning Last Admin: 03/28/18 17:40 Dose: 30 ml Atorvastatin Calcium (Lipitor) 20 mg PO QHS [facility] Last Admin: 03/30/18 21:53 Dose: 20 mg Baclofen (Lioresal) 10 mg PO TIDCM [facility] Last Admin: 03/31/18 08:46 Dose: 10 mg Calcium/Vitamin D (Os-Darren 500mg + D) 1 tablet PO TIDCM [facility] Last Admin: 03/31/18 08:46 Dose: 1 tablet Enoxaparin Sodium (Lovenox) 40 mg SC DAILY@1000 [facility] Last Admin: 03/31/18 08:49 Dose: 40 mg Famotidine (Pepcid) 20 mg PO DAILY [facility] Last Admin: 03/31/18 08:47 Dose: 20 mg Gabapentin (Neurontin) 300 mg PO TIDCM [facility] Last Admin: 03/31/18 08:46 Dose: 300 mg Metronidazole (Flagyl) 500 mg in 100 mls @ 100 mls/hr IV Q8 [facility] Last Admin: 03/31/18 10:50 Dose: 100 mls/hr Ceftriaxone Sodium 2 gm/ (Dextrose) 50 mls @ 100 mls/hr IV Q24 [facility] Levothyroxine Sodium (Synthroid) 88 mcg PO DAILY@0600 [facility] Last Admin: 03/31/18 05:56 Dose: 88 mcg Magnesium Hydroxide (Milk Of Magnesia) 30 ml PO DAILY PRN PRN Reason: Constipation Metoprolol Tartrate (Lopressor (Beta Mandy)) 12.5 mg PO DAILY [facility] Last Admin: 03/31/18 08:47 Dose: 12.5 mg Ondansetron HCl (Zofran) 4 mg IV Q8H PRN PRN PRN Reason: NAUSEA Last Admin: 03/31/18 03:22 Dose: 4 mg Oxybutynin Chloride (Ditropan) 5 mg PO TID [facility] Last Admin: 03/31/18 05:56 Dose: 5 mg Polyethylene Glycol (Miralax) 17 gm PO DAILY [facility] Last Admin: 03/31/18 08:47 Dose: Not Given Promethazine HCl (Phenergan) 12.5 mg IV Q6H PRN PRN PRN Reason: NAUSEA/VOMITING Last Admin: 03/30/18 13:55 Dose: 12.5 mg Senna/Docusate Sodium (Senokot-S, Torri-Colace) 2 tablet PO BID PRN PRN Reason: CONSTIPATION Sodium Chloride () 5 - 30 ml IV UD PRN PRN Reason: SALINE FLUSH Last Admin: 03/31/18 10:58 Dose: 10 ml Zolpidem Tartrate (Ambien (Generic)) 5 mg PO QHS PRN PRN PRN Reason: INSOMNIA Medical Necessity - Tobacco Use Smoking Status: Former smoker Assessment/Plan All Active Problems Encephalopathy acute (Acute) Sepsis (Acute) Troponin level elevated (Acute) Exacerbation of multiple sclerosis (Acute) Urinary tract bacterial infections (Acute) Patient is a 47-year-old lady with history of multiple sclerosis who presented with increasing lethargy associated with fever. Her initial assessment was consistent with acute cystitis admitted to a monitored bed for subsequent management 1. Sepsis (present on admission) secondary to acute cystitis with Stenotrophomonas maltophilia due to the presence of an indwelling suprapubic catheter: Patient admitted to regular nursing floor managed with broad-spectrum antibiotic therapy with Rocephin as well as IV fluid resuscitation. Urine cultures so far Preliminary positive for Stenotrophomonas maltophilia patient was on Rocephin discontinued started on Bactrim consultation placed to infectious disease patient however did not tolerate Bactrim more so the bacteria was resistant to Bactrim; Her blood cultures came back positive for Bacteroides fragilis. Case was discussed with Dr. Eli with infectious disease recommended starting patient on Flagyl and Rocephin. Patient apparently did not tolerate Bactrim. CT of the abdomen and pelvis also ordered for subsequent evaluation 2. Acute infectious encephalopathy secondary to above 3. Multiple sclerosis with chronic debilitation patient is wheelchair-bound. Patient is followed by Dr. Caldwell with neurology as outpatient 4. Hypothyroidism-patient is on levothyroxine home dose continued 5. Physical debility secondary to multiple sclerosis 6. DVT prophylaxis SC Lovenox Microbiology 03/27/18 09:00 Blood Culture (Wb) - Right Hand Blood Culture - Final Bacteroides fragilis 03/27/18 08:35 Blood Culture (Wb) - Venous Blood Culture - Final Bacteroides fragilis 03/27/18 09:50 Urine, Catheterized Urine Culture - Preliminary Stenotrophomonas maltophilia Active Medications Acetaminophen (Tylenol) 650 mg PO Q6H PRN PRN PRN Reason: Mild Pain (scale 0-3)/T>100.7 Last Admin: 03/30/18 21:53 Dose: 650 mg Al Hydroxide/Mg Hydroxide (Mylanta Ii) 30 ml PO Q6H PRN PRN PRN Reason: Gastric burning Last Admin: 03/28/18 17:40 Dose: 30 ml Atorvastatin Calcium (Lipitor) 20 mg PO QHS [facility] Last Admin: 03/30/18 21:53 Dose: 20 mg Baclofen (Lioresal) 10 mg PO TIDCM [facility] Last Admin: 03/31/18 08:46 Dose: 10 mg Calcium/Vitamin D (Os-Darren 500mg + D) 1 tablet PO TIDCM [facility] Last Admin: 03/31/18 08:46 Dose: 1 tablet Enoxaparin Sodium (Lovenox) 40 mg SC DAILY@1000 [facility] Last Admin: 03/31/18 08:49 Dose: 40 mg Famotidine (Pepcid) 20 mg PO DAILY [facility] Last Admin: 03/31/18 08:47 Dose: 20 mg Gabapentin (Neurontin) 300 mg PO TIDCM [facility] Last Admin: 03/31/18 08:46 Dose: 300 mg Metronidazole (Flagyl) 500 mg in 100 mls @ 100 mls/hr IV Q8 [facility] Last Admin: 03/31/18 10:50 Dose: 100 mls/hr Ceftriaxone Sodium 2 gm/ (Dextrose) 50 mls @ 100 mls/hr IV Q24 [facility] Levothyroxine Sodium (Synthroid) 88 mcg PO DAILY@0600 [facility] Last Admin: 03/31/18 05:56 Dose: 88 mcg Magnesium Hydroxide (Milk Of Magnesia) 30 ml PO DAILY PRN PRN Reason: Constipation Metoprolol Tartrate (Lopressor (Beta Mandy)) 12.5 mg PO DAILY [facility] Last Admin: 03/31/18 08:47 Dose: 12.5 mg Ondansetron HCl (Zofran) 4 mg IV Q8H PRN PRN PRN Reason: NAUSEA Last Admin: 03/31/18 03:22 Dose: 4 mg Oxybutynin Chloride (Ditropan) 5 mg PO TID [facility] Last Admin: 03/31/18 05:56 Dose: 5 mg Polyethylene Glycol (Miralax) 17 gm PO DAILY [facility] Last Admin: 03/31/18 08:47 Dose: Not Given Promethazine HCl (Phenergan) 12.5 mg IV Q6H PRN PRN PRN Reason: NAUSEA/VOMITING Last Admin: 03/30/18 13:55 Dose: 12.5 mg Senna/Docusate Sodium (Senokot-S, Torri-Colace) 2 tablet PO BID PRN PRN Reason: CONSTIPATION Sodium Chloride () 5 - 30 ml IV UD PRN PRN Reason: SALINE FLUSH Last Admin: 03/31/18 10:58 Dose: 10 ml Zolpidem Tartrate (Ambien (Generic)) 5 mg PO QHS PRN PRN PRN Reason: INSOMNIA Code Visit Inpatient E&M: 83586 Subs Hosp L2
--- NOTE | 2018-03-31 12:45 | CASEMGMT ---
TIM BRANHAM NOTE: Intro self to pt, who is resting in bed, awake/alert/oriented. Discussion about HHC services. Pt states she is still not interested in having HHC services, stating she has used them in the past, and they are a great service, but she does not feel like they would be beneficial for her at this time. Pt made aware if she would change her mind about HHC later, that this can be arranged through her PCP. Anastacio STUART RN CM
--- NOTE | 2018-03-31 17:40 | CON.PCM_ITS ---
Problem List (1) Bilateral ureteral calculi Status: Acute (2) Hydronephrosis due to obstruction of ureter Status: Acute (3) Urinary tract bacterial infections Status: Acute Reason for Consult Date of Consultation: 03/31/18 Reason for Consultation: Bilateral renal and ureteral calculi and hydronephrosis, Neurogenic bladder with SPT, UTI History of Present Illness: The patient is a 47 year old F with MS and NGB, chronic SPT followed by from urologic standpoint. He last saw her 2 weeks ago and ordered a renal us. She typically has her suprapubic tube changed every other week and she has had the suprapubic tube for approximately 4 years. She has never prior to this admission but diagnosed with nephrolithiasis. Prior to her admission, she started a new medication for her MS and with the full dose she became confused with such significance that her brought her into the emergency room for evaluation and treatment. She is currently complaining of nausea but no abdominal pain. Past Medical History Past Medical History (Chronic Problems): Chronic Problems Multiple sclerosis (Chronic) Hypothyroidism (Chronic) Allergies acetaminophen [From Percocet] Adverse Reaction (Verified 03/27/18 08:13) Other MESSES WITH MY HEAD ciprofloxacin [From Cipro] Adverse Reaction (Verified 03/27/18 08:13) Nausea/Vom/Diarrhea nitrofurantoin [From Macrodantin] Adverse Reaction (Verified 03/27/18 08:13) Nausea/Vom/Diarrhea oxycodone [From Percocet] Adverse Reaction (Verified 03/27/18 08:13) Other MESSES WITH MY HEAD Home Medications: Ambulatory Orders Medication Instructions Recorded Baclofen [Lioresal] 20 mg PO 4X/DAY 08/27/13 Atorvastatin Calcium [Lipitor] 20 mg PO QHS 09/24/17 Gabapentin [Neurontin] 300 mg PO TIDCM 09/24/17 Levothyroxine Sodium [Synthroid] 88 mcg PO DAILY 03/27/18 Metoprolol Tartrate 12.5 mg PO DAILY 03/27/18 Oxybutynin [Ditropan] 5 mg PO TID 03/27/18 Surgical History: cholecystectomy, tonsillectomy, - - Thyroidectomy, removal of kidney stone Psychiatric History: Anxiety [employer] History: No pertinent [employer] history Lives: Spouse/ Significant Other Smoking Status: Former smoker Alcohol: None Drugs: None - *Family History Paternal History Items: No pertinent history Review of Systems Constitutional: Reports: Anorexia Eyes: Denies: Vision Change HEENT: Denies: Visual Changes Cardiovascular: Denies: Chest Pain Respiratory: Denies: Shortness of Breath Gastrointestinal: Reports: Nausea Genitourinary: Reports: Retention Neurological: Reports: - - bound to bed/wheelchair due to MS Patient Problems: Active and Suspected Problems Encephalopathy acute (Acute) Sepsis (Acute) Bilateral ureteral calculi (Acute) Hydronephrosis due to obstruction of ureter (Acute) - Physical Exam General: Alert, Oriented x3, Cooperative, No apparent distress HEENT: Atraumatic, Normocephalic Oral: Dry Mucosa Neck: Trachea Midline Lungs: Normal air movement Cardiovascular: Regular rate Abdomen: Soft, Non Tender, Non-Distended Skin: No rashes Musculoskeletal: Muscle Wasting Neurological: Cranial nerves II-XII grossly intact Psych/Mental Status: Normal Affect Comment: SPT draining blue tinged clear urine. Vital Signs Temp Pulse Resp BP Pulse Ox 97.8 F 108 H 16 123/76 H 92 03/31/18 14:25 03/31/18 15:17 03/31/18 14:25 03/31/18 14:25 03/31/18 14:25 Oxygen Delivery Method Room Air Weight: 54.43 kg Body Mass Index (BMI) 23.4 Intake and Output for Last 24 Hours 03/29/18 03/30/18 03/31/18 23:59 23:59 23:59 Intake Total 1347.1 / 1347.1 1146 / 1146 507.4 / 507.4 Output Total 1100 / 1100 1950 / 1950 1305 / 1305 Balance 247.1 / 247.1 -804 / -804 -797.6 / -797.6 Microbiology Past 72 Hours 03/27/18 09:00 Blood Culture - Final Blood Culture (Wb) - Right Hand Bacteroides fragilis 03/27/18 08:35 Blood Culture - Final Blood Culture (Wb) - Venous Bacteroides fragilis 03/27/18 09:50 Urine Culture - Preliminary Urine, Catheterized Stenotrophomonas maltophilia Laboratory Tests Past 24 Hrs 03/31/18 03/31/18 05:20 05:20 WBC 12.1 H RBC 4.03 L Hgb 11.9 L Hct 35.4 L MCV 87.8 MCH 29.5 MCHC 33.6 RDW 14.5 RDW Differential 46.2 H Plt Count 193 MPV 11.1 Sodium 140 Potassium 3.9 Chloride 106 Carbon Dioxide 25.0 Anion Gap 9 BUN 16 Creatinine 1.01 Estim Creat Clear Calc 48.40 Est GFR (MDRD) Af Amer 75 Est GFR (MDRD) Non-Af 62 BUN/Creatinine Ratio 15.8 Glucose 76 Calcium 8.5 Assessment/Plan All Active Problems Encephalopathy acute (Acute) Sepsis (Acute) Bilateral ureteral calculi (Acute) Hydronephrosis due to obstruction of ureter (Acute) Troponin level elevated (Acute) Exacerbation of multiple sclerosis (Acute) Urinary tract bacterial infections (Acute) Bilateral obstructing ureteral calculi with hydronephrosis and renal calculi There is a low likelihood that I would be able to place a ureteral stent on either side due to the significant size of her ureteral calculi. I would recommend insertion of bilateral percutaneous nephrostomy tubes. At this time she does not appear to be having medical issues secondary to the stones, and given their size these are not acute in nature. Given her Cr of 1, and the non- blood cultures, I do not feel that the treatment of these stones is an emergency at the present time. I have discussed with . We will either send her home on antibiotics per ID recommendations, with follow up next week with , or, if she is medically unable to be discharged, she will need to have bilaterally PCN's placed by interventional radiology with follow up with for stone management.
[2018-03-31] MEDS: Acetaminophen 325 MG Tablet 650 MG PO (20:24)
[2018-03-31] MEDS: Atorvastatin Calcium 20 MG Tablet PO (23:21)
[2018-04-01] VITALS (7 sets, daily range): BP systolic 111–139; BP diastolic 66–69; PULSE 76–94; RESP 16–20; TEMP 36.8; O2SAT 94–96
[2018-04-01] MEDS: Oxybutynin 5 MG Tablet PO (05:22)
[2018-04-01] MEDS: Levothyroxine 88 MCG Tablet PO (05:22)
[2018-04-01 07:29] LABS: Anion Gap 7 (5-15); BUN 14 mg/dL (7-18); BUN/Creat Ratio 13.1 RATIO (10-20); Calcium,Total 8.4 mg/dL (8.5-10.1); Chloride 108 mmol/L (98-107); Creatinine, Serum 1.07 mg/dL (0.55-1.02); EST Glomerular Filtration Rate 58 mL/min (>60); Est Glom Filt Rate - Afr Amer 70 mL/min (>60); Estimated Creatinine Clearance 45.68 ml/min; Glucose 82 mg/dL (74-106); Sodium Level 141 mmol/L (136-145)
[2018-04-01] MEDS: Calcium Carb/Vitamin D 1 TABLET Tablet PO (08:20)
[2018-04-01] MEDS: Gabapentin 300 MG Capsule PO (08:21)
[2018-04-01] MEDS: Baclofen 10 MG Tablet PO (08:21)
[2018-04-01] MEDS: Enoxaparin 40 MG/0.4 ML Syringe SC (10:06)
[2018-04-01] MEDS: Famotidine 20 MG Tablet PO (10:06)
[2018-04-01] MEDS: Metoprolol Tartrate 25 MG Tablet 12.5 MG PO (10:06)
--- NOTE | 2018-04-01 11:10 | PCM.DC ---
- Discharge Diagnoses Current Active Problems: Current Active and Chronic Problems Encephalopathy acute (Acute) Sepsis (Acute) Bilateral ureteral calculi (Acute) Hydronephrosis due to obstruction of ureter (Acute) You will use the following diet at home:: No restrictions Allergies/Adverse Reactions: Allergies acetaminophen [From Percocet] Adverse Reaction (Verified 03/27/18 08:13) Other MESSES WITH MY HEAD ciprofloxacin [From Cipro] Adverse Reaction (Verified 03/27/18 08:13) Nausea/Vom/Diarrhea nitrofurantoin [From Macrodantin] Adverse Reaction (Verified 03/27/18 08:13) Nausea/Vom/Diarrhea oxycodone [From Percocet] Adverse Reaction (Verified 03/27/18 08:13) Other MESSES WITH MY HEAD Medications to take at Discharge Baclofen [Lioresal] 20 mg PO 4X/DAY 08/27/13 Atorvastatin Calcium [Lipitor] 20 mg PO QHS 09/24/17 Gabapentin [Neurontin] 300 mg PO TIDCM 09/24/17 Levothyroxine Sodium [Synthroid] 88 mcg PO DAILY 03/27/18 Metoprolol Tartrate 12.5 mg PO DAILY 03/27/18 Oxybutynin [Ditropan] 5 mg PO TID 03/27/18 Amoxicillin/Potassium Clav [Augmentin 500-125 Tablet] 1 each PO BID #20 tablet 04/01/18 The following prescriptions were given: Amoxicillin/Potassium Clav [Augmentin 500-125 Tablet] 1 each PO BID #20 tablet Primary Care Physician: Care Physician,No Primary [NON-STAFF] - Please follow up with your Primary Care Physician in: IN 3-5 DAYS Test Results: Test results from this visit will be discussed in further detail at your follow-up appointment, if applicable. Please Follow Up With: DR DALLAS ; UROLOGIST AT [facility] When: IN 5- 7 DAYS Proposed Discharge Date: 04/01/18
--- NOTE | 2018-04-01 11:12 | PCM.DC.SUM ---
Discharge Date and Diagnosis - Problem List Patient Problems: Active and Suspected Problems Encephalopathy acute (Acute) Sepsis (Acute) Bilateral ureteral calculi (Acute) Hydronephrosis due to obstruction of ureter (Acute) Date of Admission: 03/27/18 Date of Discharge: 04/01/18 - Primary Discharge Diagnosis Active and Suspected Problems Encephalopathy acute (Acute) Sepsis (Acute) Bilateral ureteral calculi (Acute) Hydronephrosis due to obstruction of ureter (Acute) - Secondary Discharge Diagnosis Chronic Problems Multiple sclerosis (Chronic) Hypothyroidism (Chronic) Hospital Course and Treatment Imaging Results: Clinical Impression(s) from Imaging Studies Chest X-Ray 03/27/18 08:25 IMPRESSION: Right basilar focal infiltrate/atelectasis. Electronically Signed: Larry Tejeda DO at 8:51 EDT Tel [phone], Service support , Brain CT 03/27/18 11:04 IMPRESSION: No acute intracranial process. Electronically Signed: Lee Woodruff at 16:42 EDT Tel , Service support , Brain MRI 03/30/18 07:46 IMPRESSION: Findings consistent with known multiple sclerosis No evidence to suggest acute demyelination Electronically Signed: Angus Purvis MD at 16:06 EDT , Service support , Chest X-Ray 03/30/18 15:15 IMPRESSION: Stable atelectasis right base and borderline cardiac size since most recent exam. No pulmonary edema, congestive heart failure or confluent pneumonia. Electronically Signed: Ashley Stewart MD at 3:21 EDT , Service support , Abdomen/Pelvis CT 03/31/18 10:43 IMPRESSION: Bilateral nephrolithiasis. Moderate bilateral hydronephrosis secondary to large calculi in the mid ureters Other findings as above N.B. : The above information has been verbally conveyed by Angus Purvis MD to dr araceli MD, on 03/31/2018 16:43:55 (ET). Electronically Signed: Angus Purvis MD at 16:09 EDT , Service support , Microbiology 03/27/18 09:00 Blood Culture (Wb) - Right Hand Blood Culture - Final Bacteroides fragilis 03/27/18 08:35 Blood Culture (Wb) - Venous Blood Culture - Final Bacteroides fragilis 03/27/18 09:50 Urine, Catheterized Urine Culture - Preliminary Stenotrophomonas maltophilia Operations: None Summary of Care Provided: Patient is a 47-year-old lady with history of multiple sclerosis who presented with increasing lethargy associated with fever. Her initial assessment was consistent with acute cystitis admitted to a monitored bed for subsequent management 1. Sepsis (present on admission) secondary to acute cystitis with Stenotrophomonas maltophilia due to the presence of an indwelling suprapubic catheter: Patient admitted to regular nursing floor managed with broad-spectrum antibiotic therapy with Rocephin as well as IV fluid resuscitation. Urine cultures so far Preliminary positive for Stenotrophomonas maltophilia patient was on Rocephin discontinued started on Bactrim consultation placed to infectious disease patient however did not tolerate Bactrim more so the bacteria was resistant to Bactrim; Her blood cultures came back positive for Bacteroides fragilis. Case was discussed with Dr. Eli with infectious disease recommended starting patient on Flagyl and Rocephin. Patient apparently did not tolerate Bactrim. CT of the abdomen and pelvis also ordered for subsequent evaluation. CT demonstrated Bilateral nephrolithiasis.Moderate bilateral hydronephrosis secondary to large calculi in the mid ureters consult was placed to urology patient was seen by Dr. Bowers who recommended for patient to follow-up with her primary Urologist Dr. Dallas at [place] 2. Acute infectious encephalopathy secondary to above 3. Multiple sclerosis with chronic debilitation patient is wheelchair-bound. Patient is followed by Dr. Caldwell with neurology as outpatient 4. Hypothyroidism-patient is on levothyroxine home dose continued 5. Physical debility secondary to multiple sclerosis 6. DVT prophylaxis SC Lovenox Patient Problems: Active and Suspected Problems Encephalopathy acute (Acute) Sepsis (Acute) Bilateral ureteral calculi (Acute) Hydronephrosis due to obstruction of ureter (Acute) - Physical Exam General: Alert HEENT: Atraumatic Neck: Supple Lungs: Clear to auscultation Cardiovascular: Regular Rhythm Psych/Mental Status: Normal Affect Vital Signs Temp Pulse Resp BP Pulse Ox 98.3 F 89 16 139/69 H 96 04/01/18 10:03 04/01/18 10:06 04/01/18 10:03 04/01/18 10:03 04/01/18 10:03 Oxygen Delivery Method Room Air Weight: 54.43 kg Body Mass Index (BMI) 23.4 Intake and Output for Last 24 Hours 03/30/18 03/31/18 04/01/18 23:59 23:59 23:59 Intake Total 1146 / 1146 1048.4 / 1048.4 252 / 252 Output Total 1950 / 1950 2355 / 2355 350 / 350 Balance -804 / -804 -1306.6 / -1306.6 -98 / -98 Microbiology Past 72 Hours 03/27/18 09:00 Blood Culture - Final Blood Culture (Wb) - Right Hand Bacteroides fragilis 03/27/18 08:35 Blood Culture - Final Blood Culture (Wb) - Venous Bacteroides fragilis 03/27/18 09:50 Urine Culture - Preliminary Urine, Catheterized Stenotrophomonas maltophilia Laboratory Tests Past 24 Hrs 04/01/18 06:14 Sodium 141 Potassium 4.0 Chloride 108 H Carbon Dioxide 26.0 Anion Gap 7 BUN 14 Creatinine 1.07 H Estim Creat Clear Calc 45.68 Est GFR (MDRD) Af Amer 70 Est GFR (MDRD) Non-Af 58 L BUN/Creatinine Ratio 13.1 Glucose 82 Calcium 8.4 L Discharge Diet: No Restrictions Home Medications: Medications to take at Discharge Baclofen [Lioresal] 20 mg PO 4X/DAY 08/27/13 Atorvastatin Calcium [Lipitor] 20 mg PO QHS 09/24/17 Gabapentin [Neurontin] 300 mg PO TIDCM 09/24/17 Levothyroxine Sodium [Synthroid] 88 mcg PO DAILY 03/27/18 Metoprolol Tartrate 12.5 mg PO DAILY 03/27/18 Oxybutynin [Ditropan] 5 mg PO TID 03/27/18 Amoxicillin/Potassium Clav [Augmentin 500-125 Tablet] 1 each PO BID #20 tablet 04/01/18 Following Prescrptions Were Given to Patient: Amoxicillin/Potassium Clav [Augmentin 500-125 Tablet] 1 each PO BID #20 tablet Primary Care Physician: Care Physician,No Primary [NON-STAFF] - Please follow up with your Primary Care Physician in: IN 3-5 DAYS Please Follow Up With: DR DALLAS ; UROLOGIST [facility] When: IN 5- 7 DAYS Disposition: Home Minutes spent on discharge:: 35 Patient Condition:: Stable Medical Necessity - Tobacco Use Smoking Status: Former smoker Meaningful Use Info Meaningful Use Diagnoses (Choose all that apply): None applicable Code Visit Inpatient E&M: 95667 Disch Hosp
--- NOTE | 2018-04-01 11:15 | DS.PCM_ITS ---
Discharge Date and Diagnosis - Problem List Patient Problems: Active and Suspected Problems Encephalopathy acute (Acute) Sepsis (Acute) Bilateral ureteral calculi (Acute) Hydronephrosis due to obstruction of ureter (Acute) Date of Admission: 03/27/18 Date of Discharge: 04/01/18 - Primary Discharge Diagnosis Active and Suspected Problems Encephalopathy acute (Acute) Sepsis (Acute) Bilateral ureteral calculi (Acute) Hydronephrosis due to obstruction of ureter (Acute) - Secondary Discharge Diagnosis Chronic Problems Multiple sclerosis (Chronic) Hypothyroidism (Chronic) Hospital Course and Treatment Imaging Results: Clinical Impression(s) from Imaging Studies Chest X-Ray 03/27/18 08:25 IMPRESSION: Right basilar focal infiltrate/atelectasis. Electronically Signed: Larry Tejeda DO at 8:51 EDT Tel [phone], Service support , Brain CT 03/27/18 11:04 IMPRESSION: No acute intracranial process. Electronically Signed: Lee Woodruff at 16:42 EDT Tel , Service support , Brain MRI 03/30/18 07:46 IMPRESSION: Findings consistent with known multiple sclerosis No evidence to suggest acute demyelination Electronically Signed: Angus Purvis MD at 16:06 EDT , Service support , Chest X-Ray 03/30/18 15:15 IMPRESSION: Stable atelectasis right base and borderline cardiac size since most recent exam. No pulmonary edema, congestive heart failure or confluent pneumonia. Electronically Signed: Ashley Stewart MD at 3:21 EDT , Service support , Abdomen/Pelvis CT 03/31/18 10:43 IMPRESSION: Bilateral nephrolithiasis. Moderate bilateral hydronephrosis secondary to large calculi in the mid ureters Other findings as above N.B. : The above information has been verbally conveyed by Angus Purvis MD to dr araceli MD, on 03/31/2018 16:43:55 (ET). Electronically Signed: Angus Purvis MD at 16:09 EDT , Service support , Microbiology 03/27/18 09:00 Blood Culture (Wb) - Right Hand Blood Culture - Final Bacteroides fragilis 03/27/18 08:35 Blood Culture (Wb) - Venous Blood Culture - Final Bacteroides fragilis 03/27/18 09:50 Urine, Catheterized Urine Culture - Preliminary Stenotrophomonas maltophilia Operations: None Summary of Care Provided: Patient is a 47-year-old lady with history of multiple sclerosis who presented with increasing lethargy associated with fever. Her initial assessment was consistent with acute cystitis admitted to a monitored bed for subsequent management 1. Sepsis (present on admission) secondary to acute cystitis with Stenotrophomonas maltophilia due to the presence of an indwelling suprapubic c atheter: Patient admitted to regular nursing floor managed with broad-spectrum antibiotic therapy with Rocephin as well as IV fluid resuscitation. Urine cultures so far Preliminary positive for Stenotrophomonas maltophilia patient was on Rocephin discontinued started on Bactrim consultation placed to infectious disease patient however did not tolerate Bactrim more so the bacteria was resistant to Bactrim; Her blood cultures came back positive for Bacteroides fragilis. Case was discussed with Dr. Eli with infectious disease recommended starting patient on Flagyl and Rocephin. Patient apparently did not tolerate Bactrim. CT of the abdomen and pelvis also ordered for subsequent evaluation. CT demonstrated Bilateral nephrolithiasis.Moderate bilateral hydronephrosis secondary to large calculi in the mid ureters consult was placed to urology patient was seen by Dr. Bowers who recommended for patient to follow-up with her primary Urologist Dr. Dallas at [facility] 2. Acute infectious encephalopathy secondary to above 3. Multiple sclerosis with chronic debilitation patient is wheelchair-bound. Patient is followed by Dr. Caldwell with neurology as outpatient 4. Hypothyroidism-patient is on levothyroxine home dose continued 5. Physical debility secondary to multiple sclerosis 6. DVT prophylaxis SC Lovenox Patient Problems: Active and Suspected Problems Encephalopathy acute (Acute) Sepsis (Acute) Bilateral ureteral calculi (Acute) Hydronephrosis due to obstruction of ureter (Acute) - Physical Exam General: Alert HEENT: Atraumatic Neck: Supple Lungs: Clear to auscultation Cardiovascular: Regular Rhythm Psych/Mental Status: Normal Affect Vital Signs Temp Pulse Resp BP Pulse Ox 98.3 F 89 16 139/69 H 96 04/01/18 10:03 04/01/18 10:06 04/01/18 10:03 04/01/18 10:03 04/01/18 10:03 Oxygen Delivery Method Room Air Weight: 54.43 kg Body Mass Index (BMI) 23.4 Intake and Output for Last 24 Hours 03/30/18 03/31/18 04/01/18 23:59 23:59 23:59 Intake Total 1146 / 1146 1048.4 / 1048.4 252 / 252 Output Total 1950 / 1950 2355 / 2355 350 / 350 Balance -804 / -804 -1306.6 / -1306.6 -98 / -98 Microbiology Past 72 Hours 03/27/18 09:00 Blood Culture - Final Blood Culture (Wb) - Right Hand Bacteroides fragilis 03/27/18 08:35 Blood Culture - Final Blood Culture (Wb) - Venous Bacteroides fragilis 03/27/18 09:50 Urine Culture - Preliminary Urine, Catheterized Stenotrophomonas maltophilia Laboratory Tests Past 24 Hrs 04/01/18 06:14 Sodium 141 Potassium 4.0 Chloride 108 H Carbon Dioxide 26.0 Anion Gap 7 BUN 14 Creatinine 1.07 H Estim Creat Clear Calc 45.68 Est GFR (MDRD) Af Amer 70 Est GFR (MDRD) Non-Af 58 L BUN/Creatinine Ratio 13.1 Glucose 82 Calcium 8.4 L Discharge Diet: No Restrictions Home Medications: Medications to take at Discharge Baclofen [Lioresal] 20 mg PO 4X/DAY 08/27/13 Atorvastatin Calcium [Lipitor] 20 mg PO QHS 09/24/17 Gabapentin [Neurontin] 300 mg PO TIDCM 09/24/17 Levothyroxine Sodium [Synthroid] 88 mcg PO DAILY 03/27/18 Metoprolol Tartrate 12.5 mg PO DAILY 03/27/18 Oxybutynin [Ditropan] 5 mg PO TID 03/27/18 Amoxicillin/Potassium Clav [Augmentin 500-125 Tablet] 1 each PO BID #20 tablet 04/01/18 Following Prescrptions Were Given to Patient: Amoxicillin/Potassium Clav [Augmentin 500-125 Tablet] 1 each PO BID #20 tablet Primary Care Physician: Care Physician,No Primary [NON-STAFF] - Please follow up with your Primary Care Physician in: IN 3-5 DAYS Please Follow Up With: DR DALLAS ; UROLOGIST AT [facility] When: IN 5- 7 DAYS Disposition: Home Minutes spent on discharge:: 35 Patient Condition:: Stable Medical Necessity - Tobacco Use Smoking Status: Former smoker Meaningful Use Info Meaningful Use Diagnoses (Choose all that apply): None applicable Code Visit Inpatient E&M: 26272 Disch Hosp
--- NOTE | 2018-04-01 14:15 | PCM.PN.ID ---
Subjective: Feeling ok, some nausea. no fever. - Physical Exam General: Alert, Cooperative, No apparent distress Lungs: Clear to auscultation, Normal air movement Cardiovascular: Regular rate, Regular Rhythm Abdomen: Soft, Non Tender, Non-Distended Skin: No rashes Vital Signs Temp Pulse Resp BP Pulse Ox 98.3 F 85 16 139/69 H 96 04/01/18 10:03 04/01/18 11:20 04/01/18 10:03 04/01/18 10:03 04/01/18 10:03 Oxygen Delivery Method Room Air Weight: 54.43 kg Body Mass Index (BMI) 23.4 Intake and Output for Last 24 Hours 03/30/18 03/31/18 04/01/18 23:59 23:59 23:59 Intake Total 1146 / 1146 1048.4 / 1048.4 372 / 372 Output Total 1950 / 1950 2355 / 2355 550 / 550 Balance -804 / -804 -1306.6 / -1306.6 -178 / -178 Microbiology Past 72 Hours 03/27/18 09:00 Blood Culture - Final Blood Culture (Wb) - Right Hand Bacteroides fragilis 03/27/18 08:35 Blood Culture - Final Blood Culture (Wb) - Venous Bacteroides fragilis 03/27/18 09:50 Urine Culture - Preliminary Urine, Catheterized Stenotrophomonas maltophilia Laboratory Tests Past 24 Hrs 04/01/18 06:14 Sodium 141 Potassium 4.0 Chloride 108 H Carbon Dioxide 26.0 Anion Gap 7 BUN 14 Creatinine 1.07 H Estim Creat Clear Calc 45.68 Est GFR (MDRD) Af Amer 70 Est GFR (MDRD) Non-Af 58 L BUN/Creatinine Ratio 13.1 Glucose 82 Calcium 8.4 L Medical Necessity - Tobacco Use Smoking Status: Former smoker Route of nutrition/ use of supplements: [] Nutritional Intake: [] IV Site: [] Major Catheter: [] - Assessment/Plan Antibiotics: [] Assessment/Plan: [] Active and Suspected Problems Encephalopathy acute (Acute) sepsis due to B. fragilis bacteremia - no clear GI symptoms. Stenotrophomonas in ucx may represent colonization given her improvement without Steno coverage. No abscess on CT, urology saw her for stones seen. Ok to go home on 10 day course of augmentin. Reports some dizziness with augmentin in past, but she is now bedbound. Will follow
--- NOTE | 2018-04-05 15:37 | CASEMGMT ---
TIM BRANHAM Discharge F/U Phone Call LACE: 9 Strata: 3 Discharge date: 04/01/18 Call date: 04/05/18 Call time: [id number] Duration: 3 minutes Admission dx: Sepsis, possible UTI Pt states has been 'doing really good' since discharge. Pt states no questions regarding discharge instructions or medications at this time. Pt states that she was referred to urology for kidney stones and was actually able to get into urologist yesterday morning as her had had an appt and the urologist was willing to see her instead. Pt voices no suggestions for [facility] at this time and states [facility] 'did excellent.' Pt voices no further concerns/needs at this time. [place] [facility] BRANHAM
== END 2018-04-01 14:09 | disposition home or self-care (01) | DRG 698 ==
LOC: ED 08:30 → PCU 10:59
PROVIDERS: Admitting Provider Internal Medicine; Emergency Provider Emergency Medicine; Visit Provider Internal Medicine
DX: T83.518A Infection and inflammatory reaction due to other urinary catheter, initial encounter (principal); A41.9 Sepsis, unspecified organism; G92 Toxic encephalopathy; N30.00 Acute cystitis without hematuria; N13.2 Hydronephrosis with renal and ureteral calculous obstruction; G35 Multiple sclerosis; E03.9 Hypothyroidism, unspecified; Z99.3 Dependence on wheelchair; Y73.8 Miscellaneous gastroenterology and urology devices associated with adverse incidents, not elsewhere classified; B96.89 Other specified bacterial agents as the cause of diseases classified elsewhere; B96.6 Bacteroides fragilis [B. fragilis] as the cause of diseases classified elsewhere; E86.0 Dehydration; Z87.891 Personal history of nicotine dependence
CPT/HCPCS: 36415; 70450; 70553; 71045; 74177; 80048; 80053; 81001; 83605; 83735; 84439; 84443; 85025; 85027; 85610; 85652; 85730; 86140; 87040; 87077; 87086; 87088; 87186; 93005; 97163; 97165; 97530; 99284; A9585; J7030; J7050; Q9967; A4216; J0696; J2405

== ENCOUNTER → 2018-09-26 07:51 | Outpatient (CLI) | payer MEDICARE, SELFPAY ==
[2018-09-26 08:10] VITALS: BP 98/71; PULSE 90; RESP 18; TEMP 36.6; O2SAT 96; BMI 18.6
[2018-09-26] MEDS: DiphenhydrAMINE 50 MG/ML Syringe 25 MG IV (08:48)
[2018-09-26] MEDS: MethylPREDNISolone 125 MG/2 ML Vial 100 MG IV (08:48)
[2018-09-26] MEDS: Ocrelizumab 600mg Infusion 40 MG IV (09:30)
== END ==
PROVIDERS: Family Provider Internal Medicine; PCP Internal Medicine; Visit Provider Psychiatry & Neurology Neurology
DX: G35 Multiple sclerosis (principal)
CPT/HCPCS: 96375; 96413; 96415; J7040; J7050; A4216; J2350

== ENCOUNTER → 2019-04-03 07:44 | Outpatient (CLI) | payer MEDICARE, SELFPAY ==
[2018-09-26 08:10] VITALS: BMI 18.6
[2019-04-03] MEDS: MethylPREDNISolone 125 MG/2 ML Vial 100 MG IV (08:42)
[2019-04-03] MEDS: DiphenhydrAMINE 50 MG/ML Syringe 25 MG IV (08:43)
[2019-04-03 08:47] VITALS: BP 112/71; PULSE 93; RESP 16; TEMP 36.3; O2SAT 95; BMI 20.9
[2019-04-03] MEDS: Ocrelizumab 600mg Infusion 40 MG IV (09:12)
== END ==
PROVIDERS: Family Provider Internal Medicine; PCP Internal Medicine; Referring Provider Psychiatry & Neurology Neurology; Visit Provider Psychiatry & Neurology Neurology
DX: G35 Multiple sclerosis (principal)
CPT/HCPCS: 96365; 96366 ×4; 96375 ×2; J7040; A4216; J2350